=== PATIENT | male | born 1935 | race American Indian/Alaskan Native ===

== ENCOUNTER 2017-03-16 08:04 | Emergency (ER) | payer MEDICARE, OTHER ==
[2017-03-16 08:09] VITALS: BMI 31.4
--- NOTE | 2017-03-16 08:36 | C.PDOC ---
History Of Present Illness 81 Y/O MALE REFERRED BY DR. BOOTHE FOR RE-EVAL. PT STATUS POST UNKNOWN PROCEDURE AT [facility] [place] FOR HEMATURIA. PRIOR HX OF PROSTATE CANCER, NOW RESOLVED. KNOWN BPH. NOTES HAS NOT HAD HEMATURIA SINCE THE PROCEDURE. PT TOLD HIS OFFICE DOES NOT TAKE INSURANCE AND ADVISED TO COME TO ER FOR FOLLOW UP. PT DENIES ANY PAIN. NOTES HE IS URINATING W/O DIFFICULTY. Time Seen by Provider: 03/16/17 08:18 Chief Complaint (Nursing): Male Genitourinary History Per: Patient History/Exam Limitations: no limitations Onset/Duration Of Symptoms: Persistent Current Symptoms Are (Timing): Still Present Pain Scale Rating Of: 0 Associated Symptoms: denies: Fever, Chills, Back Pain, Urinary Symptoms Recent travel outside of the [place]: No Past Medical History Reviewed: Historical Data, Nursing Documentation, Vital Signs Vital Signs: Last Vital Signs Temp 97.9 F 03/16/17 10:25 Pulse 82 03/16/17 10:25 Resp 20 03/16/17 10:25 BP 157/83 H 03/16/17 10:25 Pulse Ox 99 03/16/17 10:25 - Medical History PMH: Benign Prostatic Hyperplasia, HTN Family History: States: Unknown Family Hx - Social History Hx Alcohol Use: No Hx Substance Use: No - Immunization History Hx Tetanus Toxoid Vaccination: No Hx Influenza Vaccination: No Hx Pneumococcal Vaccination: No Review Of Systems Except As Marked, All Systems Reviewed And Found Negative. Constitutional: Negative for: Fever, Chills Cardiovascular: Negative for: Chest Pain Respiratory: Negative for: Cough, Shortness of Breath Gastrointestinal: Negative for: Nausea, Vomiting, Abdominal Pain Genitourinary: Negative for: Dysuria, Hematuria Skin: Negative for: Rash Physical Exam - Physical Exam Appears: Non-toxic, No Acute Distress Skin: Warm, Dry Head: Atraumatic, Normacephalic Chest: Symmetrical Cardiovascular: Rhythm Regular Respiratory: Normal Breath Sounds, No Rales, No Rhonchi, No Wheezing Gastrointestinal/Abdominal: Soft, No Tenderness, No Distention Back: Normal Inspection Extremity: Capillary Refill (< 2 SEC.), Other (R AKA, LEFT FOOT STUMP) Extremity: Bilateral: Normal Color And Temperature Neurological/Psych: Oriented x3, Normal Speech, Normal Cognition ED Course And Treatment O2 Sat by Pulse Oximetry: 98 (RA) Pulse Ox Interpretation: Normal Progress - Re-Evaluation Re-evaluation Note: 03/16/17 08:35 D/W DR Evan BOOTHE AWARE OF ER FINDINGS WILL EVAL IN ER 03/16/17 09:50 PS TO URINARY HESITANCY, FREQ. BLADDER SONO BY DR BOOTHE = >200 CC RETENTION. CLEARED FOR DC BY DR BOOTHE. NO SMITH NEEDED. DC W MYBERTRIQ, PROSCAR AND EMPIRIC CIPRO. WILL FU OFFICE 03/16/17 10:33 ADVISED BY DIRECTOR OF RESIDENTIAL SERVICES SAMPLE UNABLE TO BE PROCESSED. PT NO LONGER IN ER, UNABLE TO SEND NEW URINE SAMPLE FOR TESTING. - Data Reviewed Data Reviewed: Old records - Continuity of Care Discussed pt. case with java developer consultant/specialty: Urology Disposition Counseled Patient/Family Regarding: Studies Performed, Diagnosis, Need For Followup, Rx Given - Disposition Referrals: Deisy Boothe MD [Staff Provider] - Disposition: HOME/ ROUTINE Disposition Time: 09:51 Condition: IMPROVED Prescriptions: Ciprofloxacin [Cipro] 1 tab PO BID #14 tab Finasteride [Proscar] 5 mg PO DAILY #90 tab Mirabegron [Myrbetriq] 50 mg PO DAILY #30 tab.er.24h Instructions: Urinary Retention in Men (ED) - Clinical Impression Clinical Impression: Urinary retention - Scribe Statement The provider has reviewed the documentation as recorded by the Isis MOLINA Provider Attestation: All medical record entries made by the Isis were at my direction and personally dictated by me. I have reviewed the chart and agree that the record accurately reflects my personal performance of the history, physical exam, medical decision making, and the department course for this patient. I have also personally directed, reviewed, and agree with the discharge instructions and disposition.
[2017-03-16 10:26] VITALS: BP 157/83; PULSE 82; RESP 20; TEMP 97.9
[2017-03-16 10:34] VITALS: O2SAT 98
--- NOTE | 2017-03-19 20:27 | CON ---
DATE: 03/16/2017 Urology consultation requested by Dr. Winn in the [facility]. Urology consultation held by Dr. Deisy Boothe. REASON FOR CONSULTATION: History of hematuria. The patient is an 81-year-old male with history of hematuria. The patient was admitted to [facility] last month with gross hematuria. The patient had urologic evaluation at that time. A CAT scan revealed bilateral mild hydronephrosis. The patient was found to have an enlarged prostate as well. The patient has significant history of other diseases including atherosclerotic cardiovascular disease. 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 The patient has history peripheral vascular disease with lower extremity amputation. There is a history of hypertension and diabetes. The patient has a smoking history as well. The patient has undergone coronary artery bypass graft. The patient previously underwent cystoscopy. He was found to have clots within the bladder, which required clot evacuation. The patient was found to have inflammation of the bladder and of the prostate. At cystoscopy, the patient did not have bladder tumor. He underwent retrograde pyelogram on the right side. The retrograde pyelogram was not able to be performed on the left side. MEDICATIONS: The patient's medications have included aspirin, Plavix, iron, metformin, metoprolol and tamsulosin. During his previous admission, the patient was found to have anemia, which was worse than his normal anemia. His creatinine was 1.5 at baseline and elizabeth to approximately 2 during hospitalization. The patient is comfortable now with urination. He does not have good urinary control. In fact, he reports that he has urinary incontinence. He can void using the urinal. However, he also voids into his incontinence pads/diaper. The patient has no recent hematuria. No recent fever or rigors. The patient lives at home. The patient was found to have enlarged prostate *------* cystoscopy as well. PHYSICAL EXAMINATION GENERAL: The patient is a well-developed, well-nourished elderly male. The patient is awake and alert. ABDOMEN: Soft, nontender. Abdomen is protuberant. Abdomen is mildly distended. GENITALIA: Without inflammation. IMPRESSION: An 81-year-old male with history of hematuria, history of benign prostatic hypertrophy, history of cystitis. The patient now has urinary frequency, urgency and urge incontinence. I performed a bladder scan. The residual was 220 mL. The etiology of the urinary symptoms may be due to prostate disease and/or bladder disease. Possible bladder outlet obstruction, possible overactive bladder. RECOMMENDATION AND PLAN: Continue tamsulosin. I will increase the tamsulosin to b.i.d. Consider adding Proscar. Check PSA, urinalysis and urine culture. Possibly add Myrbetriq. I discussed the findings with the patient, his daughter as well as the ER staff. Further therapy to follow according to the patient's clinical course. Deisy Boothe MD
== END 2017-03-16 10:26 | disposition home or self-care (01) ==
LOC: C.ER 08:04
DX: N40.1 Benign prostatic hyperplasia with lower urinary tract symptoms (principal); R35.0 Frequency of micturition; N39.41 Urge incontinence; R33.8 Other retention of urine

== ENCOUNTER 2017-03-31 10:42 | Inpatient (IN) | payer MEDICARE, OTHER ==
[2017-03-31 10:42] VITALS: BMI 31.4
--- NOTE | 2017-03-31 11:20 | C.PDOC ---
History Of Present Illness 81-YEAR-OLD MALE, PRESENTS TO THE EMERGENCY DEPARTMENT WITH COMPLAINTS OF RECUR HEMATURIA THIS MORNING. SEEN 03/[address] Evan BHATTI. CO DIFFICULTY URINATING. NO PAIN, INCR ABD DISTENTION. +NAUSEA NOW RESOLVED. NO FEVER EXAM NAD NONTOXIC ABD SOFT NT ND NO RG WNL Time Seen by Provider: 03/31/17 10:56 Chief Complaint (Nursing): Male Genitourinary History Per: Patient History/Exam Limitations: no limitations Onset/Duration Of Symptoms: Days Current Symptoms Are (Timing): Still Present Past Medical History Reviewed: Historical Data, Nursing Documentation, Vital Signs Vital Signs: Last Vital Signs Temp 97.9 F 03/31/17 11:00 Pulse 76 03/31/17 11:00 Resp 16 03/31/17 11:00 BP 137/67 03/31/17 11:00 Pulse Ox 98 03/31/17 14:22 - Medical History PMH: Benign Prostatic Hyperplasia, HTN Family History: States: No Known Family Hx - Social History Hx Alcohol Use: Yes Hx Substance Use: No - Immunization History Hx Tetanus Toxoid Vaccination: No Hx Influenza Vaccination: No Hx Pneumococcal Vaccination: No Review Of Systems Except As Marked, All Systems Reviewed And Found Negative. Constitutional: Negative for: Fever Cardiovascular: Negative for: Chest Pain, Palpitations Gastrointestinal: Positive for: Nausea, Other (abd distention). Negative for: Vomiting Genitourinary: Positive for: Hematuria, Other (difficulty urinating). Negative for: Dysuria Musculoskeletal: Negative for: Back Pain Neurological: Negative for: Weakness, Numbness, Headache, Dizziness Physical Exam - Physical Exam Appears: Non-toxic, No Acute Distress Skin: Warm, Dry, No Rash Eye(s): bilateral: Normal Inspection Nose: Normal Oral Mucosa: Moist Lips: Normal Appearing Neck: Normal ROM Cardiovascular: Rhythm Regular, No Murmur Respiratory: Normal Breath Sounds, No Accessory Muscle Use Gastrointestinal/Abdominal: Soft, No Tenderness, No Distention, No Guarding, No Rebound Male Genital: Normal Inspection Extremity: Normal ROM Neurological/Psych: Oriented x3 ED Course And Treatment - Laboratory Results Result Diagrams: 03/31/17 11:27 ECG: Interpreted By Me ECG Rhythm: 2nd Degree HB Mobitz I ECG Interpretation: Abnormal Interpretation Of ECG: TWI I, II, AVL, AVF V6; no prior O2 Sat by Pulse Oximetry: 98 Progress - Re-Evaluation Re-evaluation Note: 03/31/17 12:00 >500 CC URINARY RETENTION W BLADDER SCAN. +GROSS HEMATURIA S/P SMITH, 500CC OUTPUT. NO CLOTS. VSS PT APPEARS COMFORTABLE PENDING CALLBACK DR CASPER SINCE [id number] 03/31/17 12:23 D/W DR CASPER PT W HO HEMORRHAGIC CYSTITIS AND BPH. WILL CONSULT, ADVISES ADMISSION TO MEDICINE FOR ANEMIA UNK BASELINE CBC, LOW H/H ACUTE VS CHRONIC? D/W PMD WILL OBS 03/31/17 14:25 ABN EKG. NO PRIOR FOR COMPARISON. EXAM UNCH. PT DENIES CP. WILL CHANGE TO TELE - Data Reviewed Data Reviewed: Lab, Diagnostic imaging, Old records - Continuity of Care Discussed patient case with:: Patient, PMD Discussed pt. case with weight loss sales consultant/specialty: Urology Disposition Counseled Patient/Family Regarding: Studies Performed, Diagnosis - Disposition Disposition: HOSPITALIZED Disposition Time: 12:27 Condition: STABLE - POA Present On Arrival: None - Clinical Impression Clinical Impression: Urinary retention, Anemia, Hematuria - Scribe Statement The provider has reviewed the documentation as recorded by the Scribe (Kateryna Wills) All medical record entries made by the Scribe were at my direction and personally dictated by me. I have reviewed the chart and agree that the record accurately reflects my personal performance of the history, physical exam, medical decision making, and the department course for this patient. I have also personally directed, reviewed, and agree with the discharge instructions and disposition. Decision To Admit - Pt Status Changed To: Hospital Disposition Of: Observation - . Bed Request Type: Regular Admitting Physician: Jonatan Villalta Patient Diagnosis: Urinary retention, Anemia, Hematuria
[2017-03-31 11:36] LABS: HEMATOCRIT 26.8 % (35.0-51.0); MEAN CELL VOLUME 76.8 fL (80.0-94.0); MEAN CORPUSCULAR HEMOGLOBIN 24.8 pg (27.0-31.0); MEAN CORPUSCULAR HGB CONC 32.3 g/dL (33.0-37.0); MEAN PLATELET VOLUME 7.5 fL (7.2-11.7); RED CELL DISTRIBUTION WIDTH 18.1 % (11.5-14.5); WHITE BLOOD COUNT 8.7 K/uL (4.8-10.8)
[2017-03-31 12:05] LABS: RBC URINE 5614 /hpf (0-3); URINE BILIRUBIN NEGATIVE (NEGATIVE); URINE BLOOD 3+ (NEGATIVE); URINE COLOR Red (YELLOW); URINE GLUCOSE (UA) 1+ mg/dL (Normal); URINE KETONE NEGATIVE (NEGATIVE); URINE LEUKOCYTE ESTERASE NEG Leu/uL (Negative); URINE PROTEIN 2+ mg/dL (NEGATIVE); URINE UROBILINOGEN NORMAL mg/dL (0.2-1.0); WBC CLUMPS MANY /hpf
[2017-03-31 12:07] LABS: WBC URINE 0 /hpf (0-5)
[2017-03-31 14:40] LABS: POTASSIUM 5.1 mmol/L (3.6-5.2)
[2017-03-31 14:44] LABS: CALCIUM 9.1 mg/dl (8.6-10.4)
--- NOTE | 2017-03-31 15:14 | RAD ---
PROCEDURE: CHEST RADIOGRAPH, 1 VIEW HISTORY: MED CLEARANCE COMPARISON: 12/13/2012. FINDINGS: LUNGS: There is bibasilar atelectasis. No focal consolidation. There is mild pulmonary venous congestion. PLEURA: No pneumothorax or pleural fluid seen. CARDIOVASCULAR: The heart is normal in size. Status post CABG. OSSEOUS STRUCTURES: No significant abnormalities. VISUALIZED UPPER ABDOMEN: Normal. OTHER FINDINGS: None. IMPRESSION: Mild pulmonary venous congestion. Bibasilar atelectasis.
[2017-03-31 20:07] LABS: HEMATOCRIT 22.3 % (35.0-51.0); MEAN CELL VOLUME 76.6 fL (80.0-94.0); MEAN CORPUSCULAR HEMOGLOBIN 25.3 pg (27.0-31.0); MEAN PLATELET VOLUME 7.3 fL (7.2-11.7); RED CELL DISTRIBUTION WIDTH 17.8 % (11.5-14.5); WHITE BLOOD COUNT 8.3 K/uL (4.8-10.8)
--- NOTE | 2017-03-31 22:49 | CP.PCM.HP ---
History of Present Illness - History of Present Illness History of Present Illness: CC: Hematuria, right sided groin pain x 1 day HPI: 81 year old AA female well known to me with h/o PVD, DM, CKD, HTN, CAD details, PAD post BKA, isma toe amputation, smoker, Hx of prostatic malignancy, treated at , now with retention, recent CT with bilateral hydronephosis, now with folley, 500 ml, no CP, abnormal EKG, check Echo few weeks ago pt was in [facility] [place] ,c/o hematuria and obs uropathy he underwent cystoscopy and found no abnormailaties ( stones, tumors) and was discharged home on medical managment Present on Admission - Present on Admission Any Indicators Present on Admission: Yes Review of Systems - Review of Systems Systems not reviewed;Unavailable: Acuity of Condition - Constitutional Constitutional: Fatigue, Lethargy - EENT Eyes: absent: As Per HPI, Blind Spots, Blurred Vision, Change in Vision, Decreased Night Vision, Diplopia, Discharge, Dry Eye, Exophthalmos, Floaters, Irritation, Itchy Eyes, Loss of Peripheral Vision, Pain, Photophobia, Requires Corrective Lenses, Sees Flashes, Spots in Vision, Tunnel Vision, Other Visual Disturbances, Loss of Vision, Other Ears: absent: As Per HPI, Decreased Hearing, Ear Discharge, Ear Pain, Tinnitus, Abnormal Hearing, Disequilibrium, Dizziness, Other Nose/Mouth/Throat: absent: As Per HPI, Epistaxis, Nasal Congestion, Nasal Discharge, Nasal Obstruction, Nasal Trauma, Nose Pain, Post Nasal Drip, Sinus Pain, Sinus Pressure, Bleeding Gums, Change in Voice, Dental Pain, Dry Mouth, Dysphagia, Halitosis, Hoarsness, Lip Swelling, Mouth Lesions, Mouth Pain, Odynophagia, Sore Throat, Throat Swelling, Tongue Swelling, Facial Pain, Neck Pain, Neck Mass, Other - Respiratory Respiratory: absent: As Per HPI, Cough, Dyspnea, Hemoptysis, Dyspnea on Exertion , Wheezing, Snoring, Stridor, Pain on Inspiration, Chest Congestion, Excessive Mucous Production, Change in Mucous Color, Pain with Coughing, Other - Gastrointestinal Gastrointestinal: Abdominal Pain - Genitourinary Genitourinary: Hematuria, Urinary Hesitance Past Patient History - Past Medical History & Family History Past Medical History?: Yes - Past Social History Smoking Status: Light Smoker < 10 Cigarettes Daily - CARDIAC Hx Cardiac Disorders: Yes Hx Hypertension: Yes - PULMONARY Hx Respiratory Disorders: No - NEUROLOGICAL Hx Neurological Disorder: No - HEENT Hx HEENT Problems: No - RENAL Hx Chronic Kidney Disease: No - ENDOCRINE/METABOLIC Hx Endocrine Disorders: Yes Hx Diabetes Mellitus Type 1: Yes - HEMATOLOGICAL/ONCOLOGICAL Hx Blood Disorders: No - INTEGUMENTARY Hx Dermatological Problems: No - MUSCULOSKELETAL/RHEUMATOLOGICAL Hx Musculoskeletal Disorders: No Hx Falls: No - GASTROINTESTINAL Hx Gastrointestinal Disorders: No - GENITOURINARY/GYNECOLOGICAL Hx Genitourinary Disorders: Yes Hx Hematuria: Yes Hx Prostate Cancer: Yes - PSYCHIATRIC Hx Psychophysiologic Disorder: No Hx Substance Use: No - SURGICAL HISTORY Hx Surgeries: Yes Hx Amputation: Yes (R BKA, L foot) Other/Comment: Bladder surgery. Liver biopsy - ANESTHESIA Hx Anesthesia: Yes Hx Anesthesia Reactions: No Hx Malignant Hyperthermia: No Has any member of the family had a problem w/ anesthesia?: No Meds Allergies/Adverse Reactions: Allergies Allergy/AdvReac Type Severity Reaction Status Date / Time No Known Allergies Allergy Verified 03/16/17 08:08 Physical Exam - Constitutional Appears: No Acute Distress Additional comments: pt is in mild pain lower part of abdomen tense and distented - Head Exam Head Exam: ATRAUMATIC, NORMAL INSPECTION, NORMOCEPHALIC - Eye Exam Eye Exam: EOMI, Normal appearance - ENT Exam ENT Exam: Mucous Membranes Moist - Respiratory Exam Respiratory Exam: Rhonchi, NORMAL BREATHING PATTERN - Cardiovascular Exam Cardiovascular Exam: REGULAR RHYTHM, +S1, +S2 - GI/Abdominal Exam GI & Abdominal Exam: Normal Bowel Sounds Additional comments: temse lower abdomen - Rectal Exam Additional comments: enlarged prostrate non teneder foleys in place with bright red blood stool neg for gauic - Psychiatric Exam Psychiatric exam: Normal Affect, Normal Mood Results - Vital Signs Recent Vital Signs: Last Vital Signs Temp 98.2 F 03/31/17 17:46 Pulse 75 03/31/17 17:46 Resp 20 03/31/17 17:46 BP 132/57 L 03/31/17 17:46 Pulse Ox 95 03/31/17 17:46 - Labs Result Diagrams: 04/03/17 05:59 04/03/17 05:59 Labs: Laboratory Results - last 24 hr 03/31/17 03/31/17 03/31/17 14:25 16:47 19:58 WBC 8.3 RBC 2.91 L Hgb 7.4 L Hct 22.3 L MCV 76.6 L MCH 25.3 L MCHC 33.0 RDW 17.8 H Plt Count 205 MPV 7.3 Sodium 137 Potassium 5.1 Chloride 99 Carbon Dioxide 23 Anion Gap 20 BUN 23 H Creatinine 1.8 H Est GFR ( Amer) 44 Est GFR (Non-Af Amer) 36 POC Glucose (mg/dL) 154 H Random Glucose 111 H Calcium 9.1 Blood Type Blood Type Confirm Antibody Screen 03/31/17 03/31/17 21:00 21:38 WBC RBC Hgb Hct MCV MCH MCHC RDW Plt Count MPV Sodium Potassium Chloride Carbon Dioxide Anion Gap BUN Creatinine Est GFR ( Amer) Est GFR (Non-Af Amer) POC Glucose (mg/dL) 165 H Random Glucose Calcium Blood Type A POSITIVE Blood Type Confirm A POSITIVE Antibody Screen Negative Assessment & Plan (1) Anemia Status: Acute (2) Hematuria Assessment and Plan: CBC in morning monitor H and H transfuse if necessary urology follow up Status: Acute (3) Urinary retention Status: Acute (4) Atherosclerosis of coronary artery Status: Chronic (5) Diabetes 1.5, managed as type 2 Status: Chronic (6) Hypertension Status: Chronic
[2017-04-01 08:16] LABS: HEMATOCRIT 26.4 % (35.0-51.0); MEAN CELL VOLUME 77.7 fL (80.0-94.0); MEAN CORPUSCULAR HGB CONC 33.4 g/dL (33.0-37.0); MEAN PLATELET VOLUME 7.3 fL (7.2-11.7); RED CELL DISTRIBUTION WIDTH 18.8 % (11.5-14.5); WHITE BLOOD COUNT 7.7 K/uL (4.8-10.8)
[2017-04-01 08:34] LABS: POTASSIUM 5.1 mmol/L (3.6-5.2)
[2017-04-01 08:38] LABS: CALCIUM 8.9 mg/dl (8.6-10.4)
--- NOTE | 2017-04-01 15:47 | CP.PCM.CON ---
History of Present Illness - History of Present Illness History of Present Illness: Covering for Dr Collins 81 year old with DM, HTN, ? CAD ? details, PAD post BKA, smoker, Hx of prostatic malignancy, treated at , now with retention, recent CT with bilateral hydronephosis, now with folley, 500 ml, no CP, abnormal EKG, check Echo Review of Systems - Constitutional Constitutional: Anorexia, Weakness - EENT Eyes: absent: Discharge Ears: absent: Ear Discharge Nose/Mouth/Throat: absent: Epistaxis - Cardiovascular Cardiovascular: absent: Acrocyanosis, Chest Pain, Diaphoresis, Palpitations, Syncope - Respiratory Respiratory: absent: Cough, Dyspnea, Hemoptysis - Gastrointestinal Gastrointestinal: absent: Abdominal Pain, Diarrhea, Hematemesis, Vomiting - Genitourinary Genitourinary: Change in Urinary Stream, Difficulty Urinating, Hematuria Past Patient History - Past Medical History & Family History Past Medical History?: Yes - Past Social History Smoking Status: Light Smoker < 10 Cigarettes Daily - CARDIAC Hx Cardiac Disorders: Yes Hx Hypertension: Yes - PULMONARY Hx Respiratory Disorders: No - NEUROLOGICAL Hx Neurological Disorder: No - HEENT Hx HEENT Problems: No - RENAL Hx Chronic Kidney Disease: No - ENDOCRINE/METABOLIC Hx Endocrine Disorders: Yes Hx Diabetes Mellitus Type 1: Yes - HEMATOLOGICAL/ONCOLOGICAL Hx Blood Disorders: No - INTEGUMENTARY Hx Dermatological Problems: No - MUSCULOSKELETAL/RHEUMATOLOGICAL Hx Musculoskeletal Disorders: No Hx Falls: No - GASTROINTESTINAL Hx Gastrointestinal Disorders: No - GENITOURINARY/GYNECOLOGICAL Hx Genitourinary Disorders: Yes Hx Hematuria: Yes Hx Prostate Cancer: Yes - PSYCHIATRIC Hx Psychophysiologic Disorder: No Hx Substance Use: No - SURGICAL HISTORY Hx Surgeries: Yes Hx Amputation: Yes (R BKA, L foot) Other/Comment: Bladder surgery. Liver biopsy - ANESTHESIA Hx Anesthesia: Yes Hx Anesthesia Reactions: No Hx Malignant Hyperthermia: No Has any member of the family had a problem w/ anesthesia?: No Meds Allergies/Adverse Reactions: Allergies Allergy/AdvReac Type Severity Reaction Status Date / Time No Known Allergies Allergy Verified 03/16/17 08:08 - Medications Medications: Current Medications Ferrous Sulfate (Feosol) 325 mg PO DAILY [facility] Last Admin: 04/01/17 10:51 Dose: 325 mg Losartan Potassium (Cozaar) 100 mg PO DAILY [facility] Last Admin: 04/01/17 10:51 Dose: 100 mg Metformin HCl (Glucophage) 500 mg PO DAILY [facility] Last Admin: 04/01/17 10:51 Dose: 500 mg Metoprolol Tartrate (Lopressor) 50 mg PO BID [facility] Last Admin: 04/01/17 10:50 Dose: 50 mg Pneumococcal Polyvalent Vaccine (Pneumovax 23 Vaccine) 0.5 ml IM .ONCE ONE Stop: 04/02/17 10:01 Rosuvastatin Calcium (Crestor) 5 mg PO [facility] Last Admin: 03/31/17 22:24 Dose: 5 mg Tamsulosin HCl (Flomax) 0.4 mg PO BID [facility] Last Admin: 04/01/17 10:50 Dose: 0.4 mg Physical Exam - Constitutional Appears: Non-toxic - Head Exam Head Exam: ATRAUMATIC - Eye Exam Eye Exam: EOMI - ENT Exam ENT Exam: Mucous Membranes Moist - Neck Exam Neck exam: Negative for: Lymphadenopathy, Tenderness, Thyromegaly - Respiratory Exam Respiratory Exam: Clear to Auscultation Bilateral. absent: Wheezes - Cardiovascular Exam Cardiovascular Exam: REGULAR RHYTHM, Systolic Murmur - GI/Abdominal Exam GI & Abdominal Exam: Normal Bowel Sounds. absent: Organomegaly - Rectal Exam Rectal Exam: Deferred - Extremities Exam Extremities exam: Positive for: normal capillary refill. Negative for: calf tenderness - Neurological Exam Neurological exam: Alert, Oriented x3 - Psychiatric Exam Psychiatric exam: Normal Affect, Normal Mood - Skin Skin Exam: Dry Results - Vital Signs Recent Vital Signs: Last Vital Signs Temp 98.3 F 04/01/17 07:20 Pulse 79 04/01/17 07:20 Resp 18 04/01/17 07:20 BP 138/68 04/01/17 07:20 Pulse Ox 96 04/01/17 07:20 - Labs Result Diagrams: 04/01/17 08:04 04/01/17 08:04 Assessment & Plan (1) Urinary retention Status: Acute (2) Diabetes 1.5, managed as type 2 Status: Chronic (3) Hypertension Status: Chronic (4) Atherosclerosis of coronary artery Status: Chronic (5) Abnormal EKG Status: Acute
--- NOTE | 2017-04-01 22:32 | CP.PCM.PN ---
Subjective - Date & Time of Evaluation Date of Evaluation: 04/01/17 Time of Evaluation: 15:35 - Subjective Subjective: Pt seen and examined, Azevedo catheter in place, no retention, follow-up with . No chest pain follow-up with echocardiogram Objective - Vital Signs/Intake and Output Vital Signs (last 24 hours): Temp Pulse Resp BP Pulse Ox 98.2 F 55 L 20 157/69 H 96 04/01/17 17:16 04/01/17 17:16 04/01/17 17:16 04/01/17 17:16 04/01/17 17:16 - Medications Medications: Current Medications Ferrous Sulfate (Feosol) 325 mg PO DAILY [facility] Last Admin: 04/01/17 10:51 Dose: 325 mg Losartan Potassium (Cozaar) 100 mg PO DAILY [facility] Last Admin: 04/01/17 10:51 Dose: 100 mg Metformin HCl (Glucophage) 500 mg PO DAILY [facility] Last Admin: 04/01/17 10:51 Dose: 500 mg Metoprolol Tartrate (Lopressor) 50 mg PO BID [facility] Last Admin: 04/01/17 18:07 Dose: 50 mg Pneumococcal Polyvalent Vaccine (Pneumovax 23 Vaccine) 0.5 ml IM .ONCE ONE Stop: 04/02/17 10:01 Rosuvastatin Calcium (Crestor) 5 mg PO HS [facility] Last Admin: 04/01/17 21:31 Dose: 5 mg Tamsulosin HCl (Flomax) 0.4 mg PO BID [facility] Last Admin: 04/01/17 18:07 Dose: 0.4 mg - Constitutional Appears: No Acute Distress - Head Exam Head Exam: ATRAUMATIC, NORMAL INSPECTION, NORMOCEPHALIC - Eye Exam Eye Exam: EOMI, Normal appearance, PERRL Pupil Exam: NORMAL ACCOMODATION, PERRL - Respiratory Exam Respiratory Exam: Clear to Ausculation Bilateral, NORMAL BREATHING PATTERN - Cardiovascular Exam Cardiovascular Exam: REGULAR RHYTHM, +S1, +S2. absent: Murmur - GI/Abdominal Exam GI & Abdominal Exam: Soft, Normal Bowel Sounds. absent: Tenderness Assessment and Plan (1) Anemia Status: Acute (2) Hematuria Status: Acute (3) Urinary retention Status: Acute (4) Atherosclerosis of coronary artery Status: Chronic (5) Diabetes 1.5, managed as type 2 Status: Chronic (6) Hypertension Status: Chronic
[2017-04-02] MEDS ORDERED: Propofol 10 mg/ml Inj (20 ML) ONE (09:08)
[2017-04-02] MEDS ORDERED: Lactated Ringer's 500 ML IV ONE (09:16)
[2017-04-02] MEDS: cefTRIAXone IV 1 gm in Dextros 50 ML IVPB ONE ×2 (09:16→09:17)
[2017-04-02] MEDS ORDERED: HYDROmorphone 0.5 mg/0.5 ml ISec IVP PRN (09:55)
[2017-04-02] MEDS ORDERED: Lactated Ringer's 1,000 ML IV ONE (09:57)
[2017-04-02] MEDS ORDERED: Pneumococcal 23-Valent Vaccine IM ONE (10:00)
[2017-04-02] MEDS ORDERED: Influenza Virus Vaccine 45 mcg/0.5 ml Syr IM ONE (10:00)
--- NOTE | 2017-04-02 10:22 | CP.PCM.CON ---
History of Present Illness - History of Present Illness History of Present Illness: Full report to be dictated. Thank you.YS Past Patient History - Past Medical History & Family History Past Medical History?: Yes - Past Social History Smoking Status: Light Smoker < 10 Cigarettes Daily - CARDIAC Hx Cardiac Disorders: Yes Hx Hypertension: Yes - PULMONARY Hx Respiratory Disorders: No - NEUROLOGICAL Hx Neurological Disorder: No - HEENT Hx HEENT Problems: No - RENAL Hx Chronic Kidney Disease: No - ENDOCRINE/METABOLIC Hx Endocrine Disorders: Yes Hx Diabetes Mellitus Type 1: Yes - HEMATOLOGICAL/ONCOLOGICAL Hx Blood Disorders: No - INTEGUMENTARY Hx Dermatological Problems: No - MUSCULOSKELETAL/RHEUMATOLOGICAL Hx Musculoskeletal Disorders: No Hx Falls: No - GASTROINTESTINAL Hx Gastrointestinal Disorders: No - GENITOURINARY/GYNECOLOGICAL Hx Genitourinary Disorders: Yes Hx Hematuria: Yes Hx Prostate Cancer: Yes - PSYCHIATRIC Hx Psychophysiologic Disorder: No Hx Substance Use: No - SURGICAL HISTORY Hx Surgeries: Yes Hx Amputation: Yes (R BKA, L foot) Other/Comment: Bladder surgery. Liver biopsy - ANESTHESIA Hx Anesthesia: Yes Hx Anesthesia Reactions: No Hx Malignant Hyperthermia: No Has any member of the family had a problem w/ anesthesia?: No Meds Allergies/Adverse Reactions: Allergies Allergy/AdvReac Type Severity Reaction Status Date / Time No Known Allergies Allergy Verified 03/16/17 08:08 - Medications Medications: Current Medications Ferrous Sulfate (Feosol) 325 mg PO DAILY [facility] Last Admin: 04/01/17 10:51 Dose: 325 mg Hydromorphone HCl (Dilaudid) 0.5 mg IVP Q15M PRN PRN Reason: Pain, severe (8-10) Stop: 04/02/17 11:56 Losartan Potassium (Cozaar) 100 mg PO DAILY [facility] Last Admin: 04/01/17 10:51 Dose: 100 mg Metformin HCl (Glucophage) 500 mg PO DAILY [facility] Last Admin: 04/01/17 10:51 Dose: 500 mg Metoprolol Tartrate (Lopressor) 50 mg PO BID [facility] Last Admin: 04/02/17 07:51 Dose: 50 mg Rosuvastatin Calcium (Crestor) 5 mg PO HS [facility] Last Admin: 04/01/17 21:31 Dose: 5 mg Tamsulosin HCl (Flomax) 0.4 mg PO BID [facility] Last Admin: 04/01/17 18:07 Dose: 0.4 mg Results - Vital Signs Recent Vital Signs: Last Vital Signs Temp 98.0 F 04/02/17 07:50 Pulse 69 04/02/17 07:50 Resp 20 04/02/17 07:50 BP 154/70 H 04/02/17 07:50 Pulse Ox 98 04/02/17 07:50 - Labs Result Diagrams: 04/01/17 08:04 04/01/17 08:04 Labs: Laboratory Results - last 24 hr 04/01/17 04/01/17 04/02/17 16:50 21:23 06:20 POC Glucose (mg/dL) 115 H 138 H 114 H Assessment & Plan - Assessment and Plan (Free Text) Assessment: Imp: Hematuria BPH\ Retention CAD Plan: P; for cysto and rx - Date & Time Date: 04/02/17 Time: 09:00
--- NOTE | 2017-04-02 10:36 | RAD ---
PROCEDURE: Intraoperative Fluoroscopy. HISTORY: BLADDER TUMOR FINDINGS: Fluoroscopic assistance was provided for retrograde urography.. Total time of fluoroscopy was 11.5 seconds. Multiple fluoroscopic spot films are submitted. Films are on file for review. IMPRESSION: Fluoroscopy provided
--- NOTE | 2017-04-02 12:29 | CP.PCM.PN ---
Subjective - Date & Time of Evaluation Date of Evaluation: 03/26/17 Time of Evaluation: 12:00 - Subjective Subjective: Azevedo catheter in place, no retention, follow-up with . No chest pain follow- up with echocardiogram Objective - Vital Signs/Intake and Output Vital Signs (last 24 hours): Temp Pulse Resp BP Pulse Ox 97.7 F 57 L 18 170/71 H 98 04/02/17 11:46 04/02/17 11:46 04/02/17 11:46 04/02/17 11:46 04/02/17 11:46 Intake and Output: 04/02/17 04/02/17 06:59 18:59 Intake Total 350 Output Total 550 Balance -200 - Medications Medications: Current Medications Ferrous Sulfate (Feosol) 325 mg PO DAILY [facility] Last Admin: 04/01/17 10:51 Dose: 325 mg Losartan Potassium (Cozaar) 100 mg PO DAILY [facility] Last Admin: 04/01/17 10:51 Dose: 100 mg Metformin HCl (Glucophage) 500 mg PO DAILY [facility] Last Admin: 04/01/17 10:51 Dose: 500 mg Metoprolol Tartrate (Lopressor) 50 mg PO BID [facility] Last Admin: 04/02/17 07:51 Dose: 50 mg Rosuvastatin Calcium (Crestor) 5 mg PO HS [facility] Last Admin: 04/01/17 21:31 Dose: 5 mg Tamsulosin HCl (Flomax) 0.4 mg PO BID [facility] Last Admin: 04/01/17 18:07 Dose: 0.4 mg - Constitutional Appears: Non-toxic - Head Exam Head Exam: ATRAUMATIC - Eye Exam Eye Exam: EOMI - ENT Exam ENT Exam: Mucous Membranes Moist - Neck Exam Neck Exam: absent: Lymphadenopathy, Thyromegaly - Respiratory Exam Respiratory Exam: Clear to Ausculation Bilateral. absent: Rales - Cardiovascular Exam Cardiovascular Exam: REGULAR RHYTHM, Murmur - GI/Abdominal Exam GI & Abdominal Exam: Normal Bowel Sounds. absent: Organomegaly - Rectal Exam Rectal Exam: Deferred - Extremities Exam Extremities Exam: Normal Capillary Refill. absent: Calf Tenderness - Neurological Exam Neurological Exam: Alert, Oriented x3 - Psychiatric Exam Psychiatric exam: Anxious - Skin Skin Exam: Dry Assessment and Plan (1) Urinary retention Status: Acute (2) Diabetes 1.5, managed as type 2 Status: Chronic (3) Hypertension Status: Chronic (4) Atherosclerosis of coronary artery Status: Chronic (5) Abnormal EKG Status: Acute
--- NOTE | 2017-04-02 23:39 | CP.PCM.PN ---
Subjective - Date & Time of Evaluation Date of Evaluation: 04/02/17 Time of Evaluation: 19:00 - Subjective Subjective: Azevedo catheter in place, no retention, follow-up with . No chest pain follow- up with echocardiogram Objective - Vital Signs/Intake and Output Vital Signs (last 24 hours): Temp Pulse Resp BP Pulse Ox 98.1 F 65 18 156/68 H 98 04/02/17 15:15 04/02/17 15:15 04/02/17 15:15 04/02/17 15:15 04/02/17 15:15 Intake and Output: 04/02/17 04/03/17 18:59 06:59 Intake Total 380 720 Output Total 650 1200 Balance -270 -480 - Medications Medications: Current Medications Ferrous Sulfate (Feosol) 325 mg PO DAILY [facility] Last Admin: 04/02/17 12:49 Dose: 325 mg Losartan Potassium (Cozaar) 100 mg PO DAILY [facility] Last Admin: 04/02/17 12:49 Dose: 100 mg Metformin HCl (Glucophage) 500 mg PO DAILY [facility] Last Admin: 04/02/17 12:50 Dose: 500 mg Metoprolol Tartrate (Lopressor) 50 mg PO BID [facility] Last Admin: 04/02/17 18:16 Dose: 50 mg Rosuvastatin Calcium (Crestor) 5 mg PO HS [facility] Last Admin: 04/02/17 21:24 Dose: 5 mg Tamsulosin HCl (Flomax) 0.4 mg PO BID [facility] Last Admin: 04/02/17 18:16 Dose: 0.4 mg
[2017-04-03 06:05] LABS: HEMATOCRIT 23.5 % (35.0-51.0); MEAN CELL VOLUME 77.9 fL (80.0-94.0); MEAN CORPUSCULAR HEMOGLOBIN 25.9 pg (27.0-31.0); MEAN CORPUSCULAR HGB CONC 33.2 g/dL (33.0-37.0); MEAN PLATELET VOLUME 7.4 fL (7.2-11.7); RED CELL DISTRIBUTION WIDTH 18.5 % (11.5-14.5); WHITE BLOOD COUNT 8.4 K/uL (4.8-10.8)
[2017-04-03 06:21] LABS: POTASSIUM 4.9 mmol/L (3.6-5.2)
[2017-04-03 06:24] LABS: CALCIUM 8.1 mg/dl (8.6-10.4)
--- NOTE | 2017-04-03 16:34 | PCM.URO ---
Urology Progress Note - Objective Lab Studies: Reviewed Lab Results Last 24 Hours: Laboratory Results - last 24 hr 04/02/17 04/02/17 04/03/17 16:55 21:25 05:59 WBC 8.4 RBC 3.02 L Hgb 7.8 L Hct 23.5 L MCV 77.9 L MCH 25.9 L MCHC 33.2 RDW 18.5 H Plt Count 212 MPV 7.4 Sodium Potassium Chloride Carbon Dioxide Anion Gap BUN Creatinine Est GFR ( Amer) Est GFR (Non-Af Amer) POC Glucose (mg/dL) 120 H 115 H Random Glucose Calcium 04/03/17 04/03/17 04/03/17 05:59 06:40 11:34 WBC RBC Hgb Hct MCV MCH MCHC RDW Plt Count MPV Sodium 135 Potassium 4.9 Chloride 98 Carbon Dioxide 23 Anion Gap 19 BUN 21 H Creatinine 1.6 H Est GFR ( Amer) 50 Est GFR (Non-Af Amer) 41 POC Glucose (mg/dL) 129 H 184 H Random Glucose 95 Calcium 8.1 L 04/03/17 16:12 WBC RBC Hgb Hct MCV MCH MCHC RDW Plt Count MPV Sodium Potassium Chloride Carbon Dioxide Anion Gap BUN Creatinine Est GFR ( Amer) Est GFR (Non-Af Amer) POC Glucose (mg/dL) 131 H Random Glucose Calcium Intake & Output: Intake & Output 04/02/17 04/03/17 04/03/17 18:59 06:59 18:59 Intake Total 380 5720 1250 Output Total 650 6800 750 Balance -270 -1080 500 Intake: Intake, IV Amount 300 400 Right Hand 300 400 Oral 80 320 Other 5000 1250 Output: Urine 650 6800 750 3-way Urethral 750 Urethral (Azevedo) 550 1500 Other: # Bowel Movements 1 0 Vital Signs: Vital Signs - 24 hr 04/02/17 04/03/17 04/03/17 23:00 07:00 09:29 Temperature 99.3 F 98.6 F Pulse Rate 76 63 50 L Respiratory 20 20 18 Rate Blood Pressure 138/1 L 133/56 L 124/57 L O2 Sat by Pulse 96 95 Oximetry
--- NOTE | 2017-04-04 00:51 | PN ---
SUBJECTIVE: The patient underwent TURP today. He denies any chest pain or shortness of breath. He refuses to get telemetry on. PHYSICAL EXAMINATION: VITAL SIGNS: Blood pressure 156/71, heart rate 70, temperature 98.7, respiration 20. HEENT: [place] conjunctivae. CHEST: Diminished breath sounds over both bases. HEART: S1, S2 regular. 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 LABORATORY DATA: Today's BUN and creatinine are 21 and 1.6. The rest of SMA-7 is within normal limits. Today's hemoglobin and hematocrit 7.8 and 23.5, white count and platelet count are within normal limits. ASSESSMENT: 1. History of coronary artery disease that is not confirmed with the patient or his daughter, who is not aware of the patient seeing zipper measurer; however, presentation of EKG was consistent with inferolateral ischemia. 2. Status post transurethral resection of prostate. 3. Chronic renal insufficiency. 4. Significant anemia. 5. 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 RECOMMENDATIONS: Continue current Cozaar 100 mg once a day, Crestor 5 mg once a day, metformin 500 mg once a day, Lopressor 12.5 mg twice a day. Repeat hemoglobin and hematocrit in the a.m. and obtain 12 lead EKG. I will also request an echocardiographic study as no echocardiographic study has been found in the database. Dannie Collins MD
--- NOTE | 2017-04-04 08:23 | CP.PCM.PN ---
Subjective - Date & Time of Evaluation Date of Evaluation: 04/03/17 Time of Evaluation: 21:00 - Subjective Subjective: Pt seen and examined, is for urology eval and cystoscopy Objective - Vital Signs/Intake and Output Vital Signs (last 24 hours): Temp Pulse Resp BP Pulse Ox 98.9 F 97 H 18 153/64 H 95 04/04/17 07:00 04/04/17 07:00 04/04/17 07:00 04/04/17 07:00 04/04/17 07:00 Intake and Output: 04/04/17 04/04/17 06:59 18:59 Intake Total 480 Output Total 1350 Balance -870 - Medications Medications: Current Medications Docusate Sodium (Colace) 100 mg PO TID [facility] Last Admin: 04/03/17 17:34 Dose: 100 mg Ferrous Sulfate (Feosol) 325 mg PO DAILY [facility] Last Admin: 04/03/17 09:28 Dose: 325 mg Losartan Potassium (Cozaar) 100 mg PO DAILY [facility] Last Admin: 04/03/17 09:29 Dose: 100 mg Metformin HCl (Glucophage) 500 mg PO DAILY [facility] Last Admin: 04/03/17 09:28 Dose: 500 mg Metoprolol Tartrate (Lopressor) 12.5 mg PO BID [facility] Last Admin: 04/03/17 17:34 Dose: 12.5 mg Rosuvastatin Calcium (Crestor) 5 mg PO HS [facility] Last Admin: 04/03/17 21:53 Dose: 5 mg Tamsulosin HCl (Flomax) 0.4 mg PO BID [facility] Last Admin: 04/03/17 17:34 Dose: 0.4 mg - Labs Labs: 04/03/17 05:59 04/03/17 05:59
--- NOTE | 2017-04-04 17:13 | PCM.SURG1 ---
Surgeon's Initial Post Op Note - Surgeon's Notes Surgeon: hannah lozano Track Repairer Helper: none Pre-Operative Diagnosis: hematuria. retention. bph Operative Findings: same Post-Operative Diagnosis: same Operation Performed: cysto. evauation of clots. bladder bx and fulg. tur-bn Specimen/Specimens Removed: clots, urine, bladder bx, bn Estimated Blood Loss: EBL {In ML}: 30 Blood Products Given: N/A Post-Op Condition: Good Date of Surgery/Procedure: 04/02/17 Time of Surgery/Procedure: 12:00
--- NOTE | 2017-04-04 17:20 | PCM.URO ---
Urology Progress Note - General General: No Complaints, Tolerating Diet - Subjective Abdominal Pain: No Flank Pain: No Nausea: No Vomiting: No Hematuria: Yes Good Stream: No (catheter in place) Chest Pain: No Fever & Chills: No - Objective Lab Studies: Reviewed Lab Results Last 24 Hours: Laboratory Results - last 24 hr 04/03/17 04/04/17 04/04/17 20:57 06:21 12:04 POC Glucose (mg/dL) 128 H 102 146 H Intake & Output: Intake & Output 04/03/17 04/04/17 04/04/17 18:59 06:59 18:59 Intake Total 1250 480 Output Total 750 1350 750 Balance 500 -870 -750 Intake: Oral 480 Other 1250 Output: Urine 750 1350 750 3-way Urethral 750 1000 Urethral (Azevedo) 350 750 Other: # Bowel Movements 0 Vital Signs: Vital Signs - 24 hr 04/03/17 04/04/17 04/04/17 23:00 07:00 08:45 Temperature 98.5 F 98.9 F 98.1 F Pulse Rate 76 97 H 71 Respiratory 20 18 18 Rate Blood Pressure 153/68 H 153/64 H 117/75 O2 Sat by Pulse 96 95 96 Oximetry 04/04/17 16:53 Temperature 99.2 F Pulse Rate 68 Respiratory 20 Rate Blood Pressure 136/60 O2 Sat by Pulse 95 Oximetry Imaging Studies: Reviewed - Physical Exam Abdominal Exam: Soft, Non-Tender, Non-Distended Bowel Sounds: Normal Back: No CVA Tenderness Genitalia: Without Inflammation Urine Color: [place] Extremities: Normal: Bilateral - Male Phallus: Normal Scrotum: Normal Testes: Normal: Bilateral - Plan Additional Information: Imp: stable post cysto. bph. hematuria. previous voiding sx - poor stream, nocturia. urinary retention. anemia. rec/plan: catheter in place. poss turp t/f - Date & Time of Note Date: 04/04/17 Time: 13:25
--- NOTE | 2017-04-04 18:54 | PN ---
In my consultation yesterday stated the patient underwent TURP; however, correctly, the patient underwent cystoscopy with bladder biopsy and TURP is being scheduled for Sunday. I did review the EKG that was done last night which revealed sinus arrhythmia, first-degree AV block and resolution of the previously noted lateral ischemic ST-T wave changes. The patient denies any chest pain. PHYSICAL EXAM: VITAL SIGNS: Blood pressure 136/60, heart rate 68, temperature 99.2, respirations 20. HEENT: Pale conjunctiva. CHEST: Clear. HEART: S1, S2 regular. EXTREMITIES: Right below-knee amputation and left ankle-level amputation. ASSESSMENT: 1. Peripheral vascular disease status post bilateral leg amputation. 2. Questionable history of coronary artery disease. 3. Anemia. 4. Uncontrolled diabetes mellitus. 5. Hypertension. RECOMMENDATIONS: Continue Cozaar 20 mg once a day, Crestor 5 mg once a day, Feosol 325 mg once a day, Lopressor 12.5 mg twice a day. Obtain followup CBC in a.m. The patient is awaiting echocardiograph study, which I did order yesterday. Dannie Collins MD
--- NOTE | 2017-04-04 22:51 | CP.PCM.PN ---
Subjective - Date & Time of Evaluation Date of Evaluation: 04/04/17 Time of Evaluation: 20:10 - Subjective Subjective: OR SUNDAY, NO HEMATURIA, NO NAUSEA, NO VOMINTING, NO CHEST PAIN, PENDING CLEARANCE Objective - Vital Signs/Intake and Output Vital Signs (last 24 hours): Temp Pulse Resp BP Pulse Ox 99.2 F 68 20 136/60 95 04/04/17 16:53 04/04/17 16:53 04/04/17 16:53 04/04/17 16:53 04/04/17 16:53 Intake and Output: 04/04/17 04/05/17 18:59 06:59 Output Total 750 Balance -750 - Medications Medications: Current Medications Docusate Sodium (Colace) 100 mg PO TID [facility] Last Admin: 04/04/17 17:36 Dose: 100 mg Ferrous Sulfate (Feosol) 325 mg PO DAILY [facility] Last Admin: 04/04/17 09:48 Dose: 325 mg Losartan Potassium (Cozaar) 100 mg PO DAILY [facility] Last Admin: 04/04/17 09:48 Dose: 100 mg Metformin HCl (Glucophage) 500 mg PO DAILY [facility] Last Admin: 04/04/17 09:48 Dose: 500 mg Metoprolol Tartrate (Lopressor) 12.5 mg PO BID [facility] Last Admin: 04/04/17 17:36 Dose: 12.5 mg Rosuvastatin Calcium (Crestor) 5 mg PO HS [facility] Last Admin: 04/04/17 21:38 Dose: 5 mg Sennosides (Senokot Tab) 8.6 mg PO DAILY [facility] Last Admin: 04/04/17 13:29 Dose: 8.6 mg Tamsulosin HCl (Flomax) 0.4 mg PO BID [facility] Last Admin: 04/04/17 17:36 Dose: 0.4 mg - Labs Labs: 04/03/17 05:59 04/03/17 05:59 - Constitutional Appears: Non-toxic, No Acute Distress, Chronically Ill - Head Exam Head Exam: ATRAUMATIC, NORMAL INSPECTION, NORMOCEPHALIC - Eye Exam Eye Exam: EOMI, Normal appearance, PERRL Pupil Exam: NORMAL ACCOMODATION - ENT Exam ENT Exam: Mucous Membranes Moist, Normal Exam, Normal Oropharynx, TM's Normal Bilaterally - Neck Exam Neck Exam: Normal Inspection - Respiratory Exam Respiratory Exam: NORMAL BREATHING PATTERN - Cardiovascular Exam Cardiovascular Exam: REGULAR RHYTHM, +S1, +S2, Murmur - GI/Abdominal Exam GI & Abdominal Exam: Soft, Normal Bowel Sounds - Rectal Exam Rectal Exam: NORMAL INSPECTION - Extremities Exam Extremities Exam: Pedal Edema (B/L FOOT AMPUTATIONS CLEAN WOUNDS) - Neurological Exam Neurological Exam: Abnormal Gait, Alert, Awake, CN II-XII Intact, Oriented x3 Neuro motor strength exam: Left Upper Extremity: 5, Right Upper Extremity: 5, Left Lower Extremity: 5, Right Lower Extremity: 5 - Psychiatric Exam Psychiatric exam: Normal Mood - Skin Skin Exam: Dry Assessment and Plan (1) Hematuria Assessment & Plan: FOR TURP SUNDAY Status: Resolved (2) Atherosclerosis of coronary artery Status: Chronic (3) Diabetes 1.5, managed as type 2 Status: Chronic (4) Hypertension Status: Chronic
[2017-04-05 07:41] LABS: BASO % 0.3 % (0.0-2.0); EOS % 0.7 % (0.0-4.0); HEMATOCRIT 23.9 % (35.0-51.0); LYMPH # 1.3 K/uL (1.0-4.3); LYMPH % 19.5 % (20.0-40.0); MEAN CELL VOLUME 77.3 fL (80.0-94.0); MEAN CORPUSCULAR HEMOGLOBIN 25.8 pg (27.0-31.0); MEAN CORPUSCULAR HGB CONC 33.3 g/dL (33.0-37.0); MEAN PLATELET VOLUME 7.5 fL (7.2-11.7); MONO # 0.8 K/uL (0.0-0.8); MONO % 12.5 % (0.0-10.0); RED CELL DISTRIBUTION WIDTH 18.3 % (11.5-14.5); WHITE BLOOD COUNT 6.5 K/uL (4.8-10.8)
[2017-04-05 07:47] LABS: CALCIUM 8.6 mg/dl (8.6-10.4); POTASSIUM 4.7 mmol/L (3.6-5.2)
--- NOTE | 2017-04-05 09:51 | PCM.URO ---
Urology Progress Note - Subjective Hematuria: Yes (pt for turp 04/06 if cleared/ pt for transfusion today) - Objective Lab Results Last 24 Hours: Laboratory Results - last 24 hr 04/04/17 04/04/17 04/04/17 12:04 16:43 21:39 WBC RBC Hgb Hct MCV MCH MCHC RDW Plt Count MPV Neut % (Auto) Lymph % (Auto) [place] % (Auto) Eos % (Auto) Baso % (Auto) Neut # Lymph # [place] # Eos # Baso # Sodium Potassium Chloride Carbon Dioxide Anion Gap BUN Creatinine Est GFR ( Amer) Est GFR (Non-Af Amer) POC Glucose (mg/dL) 146 H 120 H 101 Random Glucose Calcium 04/05/17 04/05/17 04/05/17 06:23 07:17 07:17 WBC 6.5 RBC 3.09 L Hgb 8.0 L Hct 23.9 L MCV 77.3 L MCH 25.8 L MCHC 33.3 RDW 18.3 H Plt Count 197 MPV 7.5 Neut % (Auto) 67.0 Lymph % (Auto) 19.5 L [place] % (Auto) 12.5 H Eos % (Auto) 0.7 Baso % (Auto) 0.3 Neut # 4.3 Lymph # 1.3 Bates # 0.8 Eos # 0.0 Baso # 0.0 Sodium 134 Potassium 4.7 Chloride 98 Carbon Dioxide 26 Anion Gap 16 BUN 22 H Creatinine 1.8 H Est GFR ( Amer) 44 Est GFR (Non-Af Amer) 36 POC Glucose (mg/dL) 100 Random Glucose 93 Calcium 8.6 Intake & Output: Intake & Output 04/04/17 04/05/17 04/05/17 18:59 06:59 18:59 Intake Total 440 Output Total 750 770 Balance -750 -330 Intake: Oral 440 Output: Urine 750 770 3-way Urethral 770 Urethral (Azevedo) 750 Other: # Bowel Movements 0 Vital Signs: Vital Signs - 24 hr 04/04/17 04/05/17 04/05/17 16:53 00:09 07:45 Temperature 99.2 F 99.1 F 98.7 F Pulse Rate 68 57 L 77 Respiratory 20 20 18 Rate Blood Pressure 136/60 139/78 147/61 O2 Sat by Pulse 95 98 96 Oximetry
--- NOTE | 2017-04-05 17:23 | CP.PCM.PCO ---
Physician Communication Note - Physician Communication Note Physician Communication Note: PT MEDICALLY CLEARED FOR OR TOMORROW PER DR. NOEL
--- NOTE | 2017-04-05 19:44 | PN ---
SUBJECTIVE: The patient denies any chest pain or shortness of breath at this time. He complains of poor appetite. PHYSICAL EXAM: VITAL SIGNS: Blood pressure 147/61, heart rate 77, temperature 98.7, respirations 18. HEENT: Pale conjunctivae. CHEST: Clear. HEART: S1, S2 regular. ABDOMEN: Soft. 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 LABORATORY DATA: Hemoglobin and hematocrit 8.0 and 23.9. White count and platelet count are within normal limits. Today's BUN and creatinine are 22 and 1.8. The rest of SMA-7 is within normal limit. Preliminary echo report revealed ejection fraction of 61%, mild pulmonary hypertension, and a mean gradient of 14 mmHg across aortic valve. ASSESSMENT: 1. Peripheral vascular disease with right below-knee amputation and left foot amputation. 2. Hematuria and history of lymphocytic carcinoma. 3. Hypertension. 4. Chronic renal insufficiency. 5. Uncontrolled diabetes mellitus. RECOMMENDATIONS: Continue current Cozaar 100 mg daily, Crestor 5 mg at bedtime, metformin 500 mg daily, Lopressor 2.5 mg twice a day. I am going to view the echocardiographic study prior to clearing the patient for TURP. Dannie Collins MD
--- NOTE | 2017-04-05 22:13 | CP.PCM.PN ---
Subjective - Date & Time of Evaluation Date of Evaluation: 04/05/17 Time of Evaluation: 20:13 - Subjective Subjective: for or in am MEDICALL STABLE FOR OR, NO FEVER, NO SOB, AND CLEARED MEDICALLY FOR OR AVERAGE RISK, NO FEVER Objective - Vital Signs/Intake and Output Vital Signs (last 24 hours): Temp Pulse Resp BP Pulse Ox 98.6 F 76 20 127/67 98 04/05/17 20:57 04/05/17 20:57 04/05/17 20:57 04/05/17 20:57 04/05/17 15:36 Intake and Output: 04/05/17 04/06/17 18:59 06:59 Intake Total 0 325 Output Total 850 Balance -850 325 - Medications Medications: Current Medications Docusate Sodium (Colace) 100 mg PO TID [facility] Last Admin: 04/05/17 19:08 Dose: 100 mg Ferrous Sulfate (Feosol) 325 mg PO DAILY [facility] Last Admin: 04/05/17 09:42 Dose: 325 mg Losartan Potassium (Cozaar) 100 mg PO DAILY [facility] Last Admin: 04/05/17 09:42 Dose: 100 mg Metformin HCl (Glucophage) 500 mg PO DAILY [facility] Last Admin: 04/05/17 09:42 Dose: 500 mg Metoprolol Tartrate (Lopressor) 12.5 mg PO BID [facility] Last Admin: 04/05/17 19:08 Dose: 12.5 mg Rosuvastatin Calcium (Crestor) 5 mg PO HS [facility] Last Admin: 04/04/17 21:38 Dose: 5 mg Sennosides (Senokot Tab) 8.6 mg PO DAILY [facility] Last Admin: 04/05/17 09:42 Dose: 8.6 mg Tamsulosin HCl (Flomax) 0.4 mg PO BID [facility] Last Admin: 04/05/17 19:08 Dose: 0.4 mg - Labs Labs: 04/05/17 07:17 04/05/17 07:17 - Constitutional Appears: Non-toxic, No Acute Distress, Chronically Ill - Head Exam Head Exam: ATRAUMATIC, NORMAL INSPECTION, NORMOCEPHALIC - Eye Exam Eye Exam: EOMI, Normal appearance, PERRL Pupil Exam: NORMAL ACCOMODATION - Neck Exam Neck Exam: Normal Inspection - Respiratory Exam Respiratory Exam: Clear to Ausculation Bilateral, NORMAL BREATHING PATTERN - Cardiovascular Exam Cardiovascular Exam: Gallop, REGULAR RHYTHM, +S1, +S2, Murmur - GI/Abdominal Exam GI & Abdominal Exam: Soft, Normal Bowel Sounds - Rectal Exam Rectal Exam: NORMAL INSPECTION - Extremities Exam Extremities Exam: Pedal Edema (OLD AMPUTATIONS WITH HREALED OLD SURGERIES) Assessment and Plan (1) Hematuria Assessment & Plan: FOR TURP IN AM Status: Resolved (2) Atherosclerosis of coronary artery Status: Chronic (3) Diabetes 1.5, managed as type 2 Status: Chronic (4) Hypertension Status: Chronic
[2017-04-05 23:07] LABS: HEMATOCRIT 27.3 % (35.0-51.0); MEAN CELL VOLUME 78.6 fL (80.0-94.0); MEAN CORPUSCULAR HEMOGLOBIN 26.1 pg (27.0-31.0); MEAN CORPUSCULAR HGB CONC 33.3 g/dL (33.0-37.0); MEAN PLATELET VOLUME 7.2 fL (7.2-11.7); RED CELL DISTRIBUTION WIDTH 18.3 % (11.5-14.5); WHITE BLOOD COUNT 6.8 K/uL (4.8-10.8)
[2017-04-05 23:14] LABS: INR 1.2
[2017-04-06 07:43] LABS: BASO % 0.2 % (0.0-2.0); EOS % 0.8 % (0.0-4.0); HEMATOCRIT 27.4 % (35.0-51.0); LYMPH # 1.4 K/uL (1.0-4.3); LYMPH % 24.2 % (20.0-40.0); MEAN CELL VOLUME 78.2 fL (80.0-94.0); MEAN CORPUSCULAR HEMOGLOBIN 26.3 pg (27.0-31.0); MEAN CORPUSCULAR HGB CONC 33.6 g/dL (33.0-37.0); MEAN PLATELET VOLUME 7.7 fL (7.2-11.7); MONO # 0.6 K/uL (0.0-0.8); RED CELL DISTRIBUTION WIDTH 18.5 % (11.5-14.5); WHITE BLOOD COUNT 5.8 K/uL (4.8-10.8)
[2017-04-06 08:32] LABS: POTASSIUM 4.7 mmol/L (3.6-5.2)
[2017-04-06 08:35] LABS: CALCIUM 8.5 mg/dl (8.6-10.4)
--- NOTE | 2017-04-06 10:09 | CARD ---
APPROVED REPORT EKG Measurement Heart [id number] <Conclusion> Undetermined rhythm Left ventricular hypertrophy with repolarization abnormality Abnormal ECG
[2017-04-06] MEDS ORDERED: Propofol 10 mg/ml Inj (20 ML) ONE (12:02)
[2017-04-06] MEDS ORDERED: cefTRIAXone IV 1 gm in Dextros 50 ML IVPB ONE (12:12)
[2017-04-06] MEDS ORDERED: Sodium Chloride 0.9% 500 ML IV ONE (12:15)
[2017-04-06] MEDS ORDERED: Phenylephrine 10 mg/ml Inj ONE (12:46)
--- NOTE | 2017-04-06 13:25 | PCM.SURG1 ---
Surgeon's Initial Post Op Note - Surgeon's Notes Surgeon: hannah lozano Housekeeping Manager: none Type of Anesthesia: General LMA Pre-Operative Diagnosis: bph Operative Findings: same Post-Operative Diagnosis: same Operation Performed: turp Specimen/Specimens Removed: prostate Estimated Blood Loss: EBL {In ML}: 20 Blood Products Given: N/A Post-Op Condition: Good Date of Surgery/Procedure: 04/06/17 Time of Surgery/Procedure: 13:25
[2017-04-06] MEDS ORDERED: Sodium Chloride 0.9% 1,000 ML IV ONE (13:32)
[2017-04-06] MEDS ORDERED: Morphine 4 MG/ML VIAL IVP PRN (14:03)
--- NOTE | 2017-04-06 14:09 | CARD ---
APPROVED REPORT EXAM: Two-dimensional and M-mode echocardiogram with Doppler and color Doppler. INDICATION Abnormal EKG/Arrhythmia RISK FACTORS Hypertension Diabetes 2D DIMENSIONS LVOT Diameter1.3 (1.8-2.4cm) M-Mode DIMENSIONS RVDd1.52 (2.1-3.2cm)Left Atrium (MM)4.12 (2.5-4.0cm) IVSd1.07 (0.7-1.1cm)Aortic Root3.17 (2.2-3.7cm) LVDd5.11 (4.0-5.6cm)Aortic Cusp Exc.1.48 (1.5-2.0cm) PWd1.24 (0.7-1.1cm)FS (%) 33 % LVDs3.42 (2.0-3.8cm)LVEF (%)61 (>50%) Aortic Valve AoV Peak Cljoatxu183.5cm/sAoV VTI55.5cmAO Peak GR.14mmHg LVOT Peak Spuczwvi798.6cm/sLVOT VTI24.40cmAO Mean GR.14mmHg ALONSO (VMAX)0.35si0TSZ (VTI)0.57cm2 Mitral Valve MV E Pqxbugws215.5cm/sMV E Peak Gr.18mmHgMV A Zgnltofo673.0cm/s MV E Mean Gr.6mmHgMV TPO964kwY/A ratio1.4 MVA (PHT)0.96cm2 TDI E/Lateral E'0.0E/Medial E'0.0 Tricuspid Valve TR Peak Bjhnvjol416vg/sTR Peak Gr.01rrPdRSEF34sbYt <Conclusion> INCOMPLETE AND INACCURATE MEAUSERMENTS NORMAL LV EF ? AORTIC VALVE PROSTHESIS CALCIFIED MITRAL ANUULUS EXTENDING TO MITRAL VALVE IF CLINICALLY INDICATED REPEAT ECHO
--- NOTE | 2017-04-06 16:52 | PN ---
SUBJECTIVE: I did see the patient earlier before he went to TURP. The patient had no chest pain, comfortable and no shortness of breath. PHYSICAL EXAMINATION: VITAL SIGNS: Blood pressure 109/58, heart rate 70, temperature 97, respiration 14. HEENT: [place] conjunctivae. CHEST: Clear. HEART: S1, S2 regular. There was no significant systolic murmur to suggest significant aortic stenosis. ABDOMEN: Soft. 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 LABORATORY DATA: Hemoglobin and hematocrit 9.2 and 27.4. White count and platelet count are within normal limits. Today's BUN and creatinine are 25 and 1.8. The rest of SMA-7 is within normal limits. Official echo report is incomplete in an accurate measurements and normal ejection fraction, questionable valve prosthesis. ASSESSMENT: 1. Questionable aortic valve replacement done, possible bypass surgery with history of underlying coronary artery disease. 2. 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 3. Chronic renal insufficiency. 4. Anemia. RECOMMENDATIONS: The patient can undergo TURP from the cardiac point of view with moderate risk. Case was discussed with the AIRCRAFT INSTRUMENT MECHANIC. Postoperatively, the patient will be resumed on his cardiac medications including Lopressor; however, antiplatelet therapy will have to be cleared with the urologist. Dannie Collins MD
--- NOTE | 2017-04-06 19:13 | CARD ---
APPROVED REPORT EKG Measurement Heart [id number] CT [id number] <Conclusion> Sinus rhythm with 1st degree AV block with blocked premature atrial complexes Otherwise normal ECG
--- NOTE | 2017-04-06 23:01 | CP.PCM.PN ---
Subjective - Date & Time of Evaluation Date of Evaluation: 04/06/17 Time of Evaluation: 20:17 - Subjective Subjective: S/P TURP, NO CHEST PAIN, NO SOB Objective - Vital Signs/Intake and Output Vital Signs (last 24 hours): Temp Pulse Resp BP Pulse Ox 97.8 F 78 20 167/90 H 96 04/06/17 16:43 04/06/17 16:43 04/06/17 16:43 04/06/17 16:43 04/06/17 16:43 Intake and Output: 04/06/17 04/07/17 18:59 06:59 Intake Total 50 Output Total 100 Balance -50 - Medications Medications: Current Medications Docusate Sodium (Colace) 100 mg PO TID [facility] Last Admin: 04/06/17 18:19 Dose: 100 mg Ferrous Sulfate (Feosol) 325 mg PO DAILY [facility] Last Admin: 04/06/17 10:42 Dose: Not Given Losartan Potassium (Cozaar) 100 mg PO DAILY [facility] Last Admin: 04/06/17 10:42 Dose: Not Given Metformin HCl (Glucophage) 500 mg PO DAILY [facility] Last Admin: 04/06/17 10:42 Dose: Not Given Metoprolol Tartrate (Lopressor) 12.5 mg PO BID [facility] Last Admin: 04/06/17 18:19 Dose: 12.5 mg Rosuvastatin Calcium (Crestor) 5 mg PO HS [facility] Last Admin: 04/06/17 21:49 Dose: 5 mg Sennosides (Senokot Tab) 8.6 mg PO DAILY [facility] Last Admin: 04/06/17 10:42 Dose: Not Given Tamsulosin HCl (Flomax) 0.4 mg PO BID [facility] Last Admin: 04/06/17 18:19 Dose: 0.4 mg - Labs Labs: 04/06/17 07:20 04/06/17 07:20 PT 13.0 SECONDS (9.7-12.2) H 04/05/17 23:04 INR 1.2 04/05/17 23:04 - Constitutional Appears: Non-toxic, No Acute Distress - Head Exam Head Exam: ATRAUMATIC, NORMAL INSPECTION, NORMOCEPHALIC - Eye Exam Eye Exam: EOMI, Normal appearance, PERRL Pupil Exam: NORMAL ACCOMODATION - ENT Exam ENT Exam: Mucous Membranes Moist, Normal Exam, Normal Oropharynx, TM's Normal Bilaterally - Neck Exam Neck Exam: Normal Inspection - Respiratory Exam Respiratory Exam: Clear to Ausculation Bilateral, NORMAL BREATHING PATTERN - Cardiovascular Exam Cardiovascular Exam: REGULAR RHYTHM, +S1, +S2 - GI/Abdominal Exam GI & Abdominal Exam: Soft, Normal Bowel Sounds - Rectal Exam Rectal Exam: NORMAL INSPECTION - Neurological Exam Neurological Exam: Abnormal Gait, Alert, Awake, CN II-XII Intact, Oriented x3 Assessment and Plan (1) Hematuria Assessment & Plan: S/P TURP Status: Resolved (2) Atherosclerosis of coronary artery Status: Chronic (3) Diabetes 1.5, managed as type 2 Status: Chronic (4) Hypertension Status: Chronic
[2017-04-07 06:38] LABS: HEMATOCRIT 28.1 % (35.0-51.0); MEAN CELL VOLUME 78.5 fL (80.0-94.0); MEAN CORPUSCULAR HEMOGLOBIN 25.9 pg (27.0-31.0); MEAN PLATELET VOLUME 7.8 fL (7.2-11.7); RED CELL DISTRIBUTION WIDTH 18.5 % (11.5-14.5); WHITE BLOOD COUNT 6.8 K/uL (4.8-10.8)
[2017-04-07 06:43] LABS: POTASSIUM 4.9 mmol/L (3.6-5.2)
[2017-04-07 06:46] LABS: CALCIUM 8.3 mg/dl (8.6-10.4)
--- NOTE | 2017-04-07 20:26 | PN ---
DATE: 04/07/2017 SUBJECTIVE: The patient underwent transurethral prostatic resection yesterday. He denies chest pain at this time. He refuses to keep belt splicer on. PHYSICAL EXAMINATION VITAL SIGNS: Blood pressure 167/75, heart rate 82, temperature 99.8, respiration 20. HEENT: [place] conjunctivae. CHEST: Clear. HEART: Sounds are regular. 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 LABORATORY DATA: Hemoglobin and hematocrit 9.3 and 28.1, white count and platelet count are within normal limits. Today's BUN and creatinine are 24 and 1.7 respectively. Glucose 111. The rest of SMA-7 is within normal limits. ASSESSMENT: 1. Status post transurethral resection of the prostate. 2. Coronary artery disease with history of coronary artery bypass surgery and possible aortic valve replacement. 3. 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 4. Hypertension. 5. Anemia. RECOMMENDATIONS: Continue aspirin 81 mg once a day, Cozaar mg once a day, Crestor at 5 mg once a day, Feosol at one tablet once a day, Plavix will be resumed tomorrow at 75 mg once a day. Resume Lopressor 12.5 mg twice a day. Obtain 12 lead EKG. Dannie Collins MD
--- NOTE | 2017-04-08 06:48 | OP ---
PROCEDURE DATE: 04/06/2017 PREOPERATIVE DIAGNOSES: Urinary retention, hematuria and enlarged prostate. POSTOPERATIVE DIAGNOSES: Urinary retention, hematuria and enlarged prostate. PROCEDURE: Transurethral resection of prostate. SURGEON: Deisy Boothe MD DESCRIPTION OF PROCEDURE: The patient received general anesthesia. The patient received perioperative antibiotics. The patient was placed in lithotomy position. The genitalia prepped and draped sterilely. A 26-Romansh continuous flow resectoscope sheath was introduced under direct vision. Urethra, prostate, and bladder were inspected. FINDINGS: There was no stricture in the anterior urethra. There was evidence of trilobar prostatic hypertrophy. There was moderate bladder trabeculation. Cystitis was noted. There was no bladder tumor. There was no bladder stone. The ureteral orifices were identified and spared throughout the procedure. Resection of the prostate was begun at the bladder neck on the floor. The rest of the anterior roof tissue was resected. Subsequently, the lateral lobes were each resected. Finally, the floor and apical prostatic tissues were resected with the surgeon's index finger with the in the rectum. Hemostasis was achieved after each section of resection. The prostatic specimen was removed with microvasive evacuator. The resectoscope was reinserted. There were no residual prostatic chips. Hemostasis was complete. Resectoscope and sheath were removed. A Azevedo catheter was inserted. Bladder was drained, it was clear. There was minimal bleeding throughout the procedure. The patient tolerated the procedure without complication. Deisy Boothe MD
--- NOTE | 2017-04-08 18:43 | PN ---
DATE: 04/08/2017 SUBJECTIVE: The patient is extremely noncompliant today. He refuses to have blood work and refused process pumper. He denies chest pain or shortness of breath. examined him today. PHYSICAL EXAMINATION: VITAL SIGNS: Blood pressure 150/84, heart rate 84, temperature 98.4, respirations 20. LABORATORY DATA: EKG done last night reveals Mobitz I second-degree AV block. Today's blood sugars are 104 and 152. ASSESSMENT: 1. Status post transurethral prostatectomy. 2. Mobitz I second-degree AV block. 3. Coronary artery disease and questionable history of aortic valve replacement. 4. Uncontrolled diabetes mellitus. 5. Hypertension. CONDITIONS: Continue aspirin 81 mg once a day, Cozaar 100 mg daily, and Plavix 75 mg once a day. Discontinue Lopressor and obtain 12 lead EKG once the patient allows. Continue Crestor 5 mg once a day, and Feosol 325 mg daily. Dannie Collins MD
--- NOTE | 2017-04-08 21:29 | CP.PCM.PN ---
Subjective - Date & Time of Evaluation Date of Evaluation: 04/07/17 Time of Evaluation: 20:19 - Subjective Subjective: S/P TURP, NO COMPLICATIONS NO SOB, NO CHEST PAIN Objective - Vital Signs/Intake and Output Vital Signs (last 24 hours): Temp Pulse Resp BP Pulse Ox 99.4 F 82 18 151/76 H 96 04/08/17 15:14 04/08/17 18:09 04/08/17 15:14 04/08/17 18:09 04/08/17 15:14 Intake and Output: 04/08/17 04/09/17 18:59 06:59 Intake Total 300 Output Total 375 Balance -75 - Medications Medications: Current Medications Amlodipine Besylate (Norvasc) 5 mg PO DAILY [facility] Aspirin (Aspirin Chewable) 81 mg PO DAILY [facility] Last Admin: 04/08/17 10:45 Dose: 81 mg Clopidogrel Bisulfate (Plavix) 75 mg PO DAILY [facility] Last Admin: 04/08/17 10:45 Dose: 75 mg Docusate Sodium (Colace) 100 mg PO TID [facility] Last Admin: 04/08/17 17:20 Dose: 100 mg Ferrous Sulfate (Feosol) 325 mg PO DAILY [facility] Last Admin: 04/08/17 10:45 Dose: 325 mg Losartan Potassium (Cozaar) 100 mg PO DAILY [facility] Last Admin: 04/08/17 10:45 Dose: 100 mg Metformin HCl (Glucophage) 500 mg PO DAILY [facility] Last Admin: 04/08/17 10:45 Dose: 500 mg Rosuvastatin Calcium (Crestor) 5 mg PO HS [facility] Last Admin: 04/08/17 21:15 Dose: 5 mg Sennosides (Senokot Tab) 8.6 mg PO DAILY [facility] Last Admin: 04/08/17 10:45 Dose: 8.6 mg Tamsulosin HCl (Flomax) 0.4 mg PO BID [facility] Last Admin: 04/08/17 17:20 Dose: 0.4 mg - Labs Labs: 04/07/17 06:24 04/07/17 06:24 PT 13.0 SECONDS (9.7-12.2) H 04/05/17 23:04 INR 1.2 04/05/17 23:04 - Constitutional Appears: Non-toxic, No Acute Distress - Head Exam Head Exam: ATRAUMATIC, NORMAL INSPECTION, NORMOCEPHALIC - Eye Exam Pupil Exam: NORMAL ACCOMODATION - ENT Exam ENT Exam: Mucous Membranes Moist - Respiratory Exam Respiratory Exam: Clear to Ausculation Bilateral, NORMAL BREATHING PATTERN - Cardiovascular Exam Cardiovascular Exam: +S1, +S2, Murmur - GI/Abdominal Exam GI & Abdominal Exam: Normal Bowel Sounds - Rectal Exam Rectal Exam: NORMAL INSPECTION - Exam Exam: NORMAL INSPECTION - Extremities Exam Extremities Exam: Pedal Edema - Back Exam Back Exam: NORMAL INSPECTION Assessment and Plan (1) Hematuria Assessment & Plan: S/P TURP, AND HAS FOLEYS Status: Resolved (2) Atherosclerosis of coronary artery Status: Chronic (3) Diabetes 1.5, managed as type 2 Status: Chronic (4) Hypertension Status: Chronic
--- NOTE | 2017-04-08 22:26 | CP.PCM.PN ---
Subjective - Date & Time of Evaluation Date of Evaluation: 04/08/17 Time of Evaluation: 20:20 - Subjective Subjective: FEELS BETTER, NO SOB Objective - Vital Signs/Intake and Output Vital Signs (last 24 hours): Temp Pulse Resp BP Pulse Ox 99.4 F 82 18 151/76 H 96 04/08/17 15:14 04/08/17 18:09 04/08/17 15:14 04/08/17 18:09 04/08/17 15:14 Intake and Output: 04/08/17 04/09/17 18:59 06:59 Intake Total 300 320 Output Total 375 540 Balance -75 -220 - Medications Medications: Current Medications Amlodipine Besylate (Norvasc) 5 mg PO DAILY [facility] Aspirin (Aspirin Chewable) 81 mg PO DAILY [facility] Last Admin: 04/08/17 10:45 Dose: 81 mg Clopidogrel Bisulfate (Plavix) 75 mg PO DAILY [facility] Last Admin: 04/08/17 10:45 Dose: 75 mg Docusate Sodium (Colace) 100 mg PO TID [facility] Last Admin: 04/08/17 17:20 Dose: 100 mg Ferrous Sulfate (Feosol) 325 mg PO DAILY [facility] Last Admin: 04/08/17 10:45 Dose: 325 mg Losartan Potassium (Cozaar) 100 mg PO DAILY [facility] Last Admin: 04/08/17 10:45 Dose: 100 mg Metformin HCl (Glucophage) 500 mg PO DAILY [facility] Last Admin: 04/08/17 10:45 Dose: 500 mg Rosuvastatin Calcium (Crestor) 5 mg PO HS [facility] Last Admin: 04/08/17 21:15 Dose: 5 mg Sennosides (Senokot Tab) 8.6 mg PO DAILY [facility] Last Admin: 04/08/17 10:45 Dose: 8.6 mg Tamsulosin HCl (Flomax) 0.4 mg PO BID [facility] Last Admin: 04/08/17 17:20 Dose: 0.4 mg - Labs Labs: 04/07/17 06:24 04/07/17 06:24 PT 13.0 SECONDS (9.7-12.2) H 04/05/17 23:04 INR 1.2 04/05/17 23:04 - Constitutional Appears: Non-toxic, No Acute Distress, Chronically Ill - Head Exam Head Exam: ATRAUMATIC, NORMAL INSPECTION, NORMOCEPHALIC - Eye Exam Eye Exam: EOMI, Normal appearance Pupil Exam: NORMAL ACCOMODATION, PERRL - ENT Exam ENT Exam: Mucous Membranes Moist, Normal Exam - Respiratory Exam Respiratory Exam: Clear to Ausculation Bilateral, NORMAL BREATHING PATTERN - Cardiovascular Exam Cardiovascular Exam: +S1, +S2, Murmur - GI/Abdominal Exam GI & Abdominal Exam: Soft, Normal Bowel Sounds - Rectal Exam Rectal Exam: NORMAL INSPECTION - Exam Exam: NORMAL INSPECTION - Extremities Exam Extremities Exam: Full ROM - Back Exam Back Exam: NORMAL INSPECTION Assessment and Plan (1) Hematuria Assessment & Plan: S/P TURP Status: Resolved (2) Atherosclerosis of coronary artery Status: Chronic (3) Diabetes 1.5, managed as type 2 Status: Chronic (4) Hypertension Status: Chronic
[2017-04-09 08:15] LABS: BASO % 0.2 % (0.0-2.0); EOS % 0.5 % (0.0-4.0); HEMATOCRIT 27.6 % (35.0-51.0); LYMPH # 1.7 K/uL (1.0-4.3); LYMPH % 23.6 % (20.0-40.0); MEAN CELL VOLUME 77.8 fL (80.0-94.0); MEAN CORPUSCULAR HGB CONC 33.5 g/dL (33.0-37.0); MEAN PLATELET VOLUME 7.5 fL (7.2-11.7); MONO # 0.8 K/uL (0.0-0.8); MONO % 11.3 % (0.0-10.0); RED CELL DISTRIBUTION WIDTH 18.6 % (11.5-14.5); WHITE BLOOD COUNT 7.1 K/uL (4.8-10.8)
--- NOTE | 2017-04-09 12:19 | PCM.URO ---
Urology Progress Note - General General: No Complaints, Tolerating Diet - Subjective Abdominal Pain: No Flank Pain: No Nausea: No Vomiting: No Hematuria: No Dsypnea: No Chest Pain: No Fever & Chills: No - Objective Lab Studies: Reviewed Lab Results Last 24 Hours: Laboratory Results - last 24 hr 04/08/17 04/08/17 04/09/17 16:55 20:56 06:36 WBC RBC Hgb Hct MCV MCH MCHC RDW Plt Count MPV Neut % (Auto) Lymph % (Auto) Bee % (Auto) Eos % (Auto) Baso % (Auto) Neut # Lymph # Bee # Eos # Baso # POC Glucose (mg/dL) 109 153 H 109 04/09/17 04/09/17 07:45 11:23 WBC 7.1 RBC 3.55 L Hgb 9.3 L Hct 27.6 L MCV 77.8 L MCH 26.0 L MCHC 33.5 RDW 18.6 H Plt Count 196 MPV 7.5 Neut % (Auto) 64.4 Lymph % (Auto) 23.6 Bee % (Auto) 11.3 H Eos % (Auto) 0.5 Baso % (Auto) 0.2 Neut # 4.5 Lymph # 1.7 Bee # 0.8 Eos # 0.0 Baso # 0.0 POC Glucose (mg/dL) 154 H Intake & Output: Intake & Output 04/08/17 04/09/17 04/09/17 18:59 06:59 18:59 Intake Total 300 320 Output Total 375 1090 Balance -75 -770 Intake: Oral 300 320 Output: Urine 375 10[address]-way Urethral 1090 Urethral (Azevedo) 375 Other: # Bowel Movements 2 1 Vital Signs: Vital Signs - 24 hr 04/08/17 04/08/17 04/08/17 15:14 18:09 23:00 Temperature 99.4 F 99 F Pulse Rate 58 L 82 86 Respiratory 18 20 Rate Blood Pressure 161/66 H 151/76 H 143/63 O2 Sat by Pulse 96 96 Oximetry 04/09/17 07:00 Temperature 98.6 F Pulse Rate 91 H Respiratory 18 Rate Blood Pressure 146/70 O2 Sat by Pulse 95 Oximetry - Physical Exam Abdominal Exam: Soft, Non-Tender, Non-Distended Bowel Sounds: Normal Back: No CVA Tenderness Genitalia: Without Inflammation Urinary Catheter Draining Well: Yes Urine Color: Clear, Yellow - Male Phallus: Normal - Plan Discontinue Urinary Catheter: Yes Ambulation - Out of Bed: Yes Intake & Output: Yes Additional Information: Imp: progressing well, post TURP. rec: d/c foly. Discussed with pt and w [facility] staff - Date & Time of Note Date: 04/09/17 Time: 12:19
--- NOTE | 2017-04-09 13:10 | PN ---
SUBJECTIVE: The patient denies any chest pain or shortness of breath. He refuses to keep telemetry on and to his heart and lungs. PHYSICAL EXAMINATION VITAL SIGNS: Blood pressure 146/70, heart rate 91, temperature 98.6, respiration 18. LABORATORY DATA: Hemoglobin and hematocrit 9.3 and 27.6, white count and platelet count are within normal limits. Today's glucose are 109 and 154. ASSESSMENT: 1. Status post transurethral resection of the prostate. 2. Coronary artery disease status post coronary artery bypass surgery and possible aortic valve replacement. 3. Mobitz I second-degree AV block. 4. Diabetes mellitus and hypertension. CONDITIONS: Continue Plavix 75 mg once a day, Norvasc 5 mg once a day, Crestor 5 mg once a day, Cozaar 100 mg once a day, aspirin 81 mg once a day. Her Azevedo catheter will be removed. I spoke to the SAFETY DEPOSIT CLERK to try to convince patient to have monitoring engineer on at least for few hours. Dannie Collins MD
--- NOTE | 2017-04-09 15:13 | CP.PCM.PN ---
Subjective - Date & Time of Evaluation Date of Evaluation: 04/09/17 Time of Evaluation: 12:35 - Subjective Subjective: Pt seen and examined today states doing well ,denies any chest pain, sob , palpitations, abdominal, n/v f/c draining clear urine hgb stable -9.3>9.2>9.1 s/p PRBC transfusion s/p TURP Objective - Vital Signs/Intake and Output Vital Signs (last 24 hours): Temp Pulse Resp BP Pulse Ox 98.6 F 91 H 18 146/70 95 04/09/17 07:00 04/09/17 07:00 04/09/17 07:00 04/09/17 07:00 04/09/17 07:00 Intake and Output: 04/09/17 04/09/17 06:59 18:59 Intake Total 320 Output Total 1090 Balance -770 - Medications Medications: Current Medications Amlodipine Besylate (Norvasc) 5 mg PO DAILY [facility] Last Admin: 04/09/17 10:21 Dose: 5 mg Aspirin (Aspirin Chewable) 81 mg PO DAILY [facility] Last Admin: 04/09/17 10:21 Dose: 81 mg Clopidogrel Bisulfate (Plavix) 75 mg PO DAILY [facility] Last Admin: 04/09/17 10:20 Dose: 75 mg Docusate Sodium (Colace) 100 mg PO TID [facility] Last Admin: 04/09/17 13:07 Dose: 100 mg Ferrous Sulfate (Feosol) 325 mg PO DAILY [facility] Last Admin: 04/09/17 10:21 Dose: 325 mg Losartan Potassium (Cozaar) 100 mg PO DAILY [facility] Last Admin: 04/09/17 10:21 Dose: 100 mg Metformin HCl (Glucophage) 500 mg PO DAILY [facility] Last Admin: 04/09/17 10:20 Dose: 500 mg Rosuvastatin Calcium (Crestor) 5 mg PO HS [facility] Last Admin: 04/08/17 21:15 Dose: 5 mg Sennosides (Senokot Tab) 8.6 mg PO DAILY [facility] Last Admin: 04/09/17 10:21 Dose: 8.6 mg Tamsulosin HCl (Flomax) 0.4 mg PO BID [facility] Last Admin: 04/09/17 10:20 Dose: 0.4 mg - Labs Labs: 04/09/17 07:45 04/07/17 06:24 PT 13.0 SECONDS (9.7-12.2) H 04/05/17 23:04 INR 1.2 04/05/17 23:04 - Constitutional Appears: Well, No Acute Distress - Respiratory Exam Respiratory Exam: Clear to Ausculation Bilateral, NORMAL BREATHING PATTERN - Cardiovascular Exam Cardiovascular Exam: REGULAR RHYTHM, +S1, +S2 - Neurological Exam Neurological Exam: Alert, Awake, Oriented x3 Assessment and Plan - Assessment and Plan (Free Text) Assessment: A/P 81 yr old male admitted for urinary retension / hematuria / anemia s/p cystoscopy s/p TURP S/P PRBC Transfusion hgb stable after TURP Seen by Dr. boothe , recommends to d/c sm[facility]th cath and pt voiding without any issues discharge home today with 7 days of levaquin and f/u with Dr. Boothe office in 2 week D/w FDr. villalta, stable fo r discharge home today and f/u wiht Dr. Villalta office in 1 week Discharge plan discussed with patient , who understands an d agrees with plan Pt instructed to returns to if voiding difficulty or hematuria recur
[2017-04-09 15:53] VITALS: BP 146/75; PULSE 87; RESP 20; TEMP 98.3; O2SAT 98
--- NOTE | 2017-04-09 23:17 | CP.PCM.DIS ---
Provider - Provider Date of Admission: 04/01/17 15:01 Attending physician: Jonatan Villalta MD Time Spent in preparation of Discharge (in minutes): 30 Diagnosis - Discharge Diagnosis (1) Hematuria Status: Resolved (2) Atherosclerosis of coronary artery Status: Chronic (3) Diabetes 1.5, managed as type 2 Status: Chronic (4) Hypertension Status: Chronic Hospital Course - Lab Results Lab Results: Most Recent Lab Values WBC 7.1 K/uL (4.8-10.8) 04/09/17 07:45 RBC 3.55 Mil/uL (4.40-5.90) L 04/09/17 07:45 Hgb 9.3 g/dL (12.0-18.0) L 04/09/17 07:45 Hct 27.6 % (35.0-51.0) L 04/09/17 07:45 MCV 77.8 fL (80.0-94.0) L 04/09/17 07:45 MCH 26.0 pg (27.0-31.0) L 04/09/17 07:45 MCHC 33.5 g/dL (33.0-37.0) 04/09/17 07:45 RDW 18.6 % (11.5-14.5) H 04/09/17 07:45 Plt Count 196 K/uL (130-400) 04/09/17 07:45 MPV 7.5 fL (7.2-11.7) 04/09/17 07:45 Neut % (Auto) 64.4 % (50.0-75.0) 04/09/17 07:45 Lymph % (Auto) 23.6 % (20.0-40.0) 04/09/17 07:45 Clay % (Auto) 11.3 % (0.0-10.0) H 04/09/17 07:45 Eos % (Auto) 0.5 % (0.0-4.0) 04/09/17 07:45 Baso % (Auto) 0.2 % (0.0-2.0) 04/09/17 07:45 Neut # 4.5 K/uL (1.8-7.0) 04/09/17 07:45 Lymph # 1.7 K/uL (1.0-4.3) 04/09/17 07:45 Clay # 0.8 K/uL (0.0-0.8) 04/09/17 07:45 Eos # 0.0 K/uL (0.0-0.7) 04/09/17 07:45 Baso # 0.0 K/uL (0.0-0.2) 04/09/17 07:45 PT 13.0 SECONDS (9.7-12.2) H 04/05/17 23:04 INR 1.2 04/05/17 23:04 Sodium 137 mmol/L (132-148) 04/07/17 06:24 Potassium 4.9 mmol/L (3.6-5.2) 04/07/17 06:24 Chloride 100 mmol/L (98-107) 04/07/17 06:24 Carbon Dioxide 23 mmol/L (22-30) 04/07/17 06:24 Anion Gap 18 (10-20) 04/07/17 06:24 BUN 24 mg/dL (9-20) H 04/07/17 06:24 Creatinine 1.7 MG/DL (0.8-1.5) H 04/07/17 06:24 Est GFR ( Amer) 47 04/07/17 06:24 Est GFR (Non-Af Amer) 39 04/07/17 06:24 POC Glucose (mg/dL) 154 mg/dL (65-110) H 04/09/17 11:23 Random Glucose 111 mg/dL (75-110) H 04/07/17 06:24 Calcium 8.3 mg/dl (8.6-10.4) L 04/07/17 06:24 Urine Color Red (YELLOW) 03/31/17 11:43 Urine Clarity Hazy (Clear) 03/31/17 11:43 Urine pH 7.0 (5.0-8.0) 03/31/17 11:43 Ur Specific [place] 1.014 (1.003-1.030) 03/31/17 11:43 Urine Protein 2+ mg/dL (NEGATIVE) H 03/31/17 11:43 Urine Glucose (UA) 1+ mg/dL (Normal) H 03/31/17 11:43 Urine Ketones Negative mg/dL (NEGATIVE) 03/31/17 11:43 Urine Blood 3+ (NEGATIVE) H 03/31/17 11:43 Urine Nitrate Negative (NEGATIVE) 03/31/17 11:43 Urine Bilirubin Negative (NEGATIVE) 03/31/17 11:43 Urine Urobilinogen Normal mg/dL (0.2-1.0) 03/31/17 11:43 Ur Leukocyte Esterase Neg [place]/uL (Negative) 03/31/17 11:43 Urine WBC (Auto) 0 /hpf (0-5) 03/31/17 11:43 Urine RBC (Auto) 5614 /hpf (0-3) H 03/31/17 11:43 Urine WBC Clumps (Auto) Many /hpf (NONE) H 03/31/17 11:43 Blood Type A POSITIVE 04/05/17 11:26 Blood Type Confirm A POSITIVE 03/31/17 21:00 Antibody Screen Negative 04/05/17 11:26 - Hospital Course Hospital Course: ADMITTED WITH HEMATURIA AND HE WAS TREATED WITH MEDS AND W/U WAS DONE AND HE UNDERWENT TURP AND IS DISCHARGED Discharge Exam - Head Exam Head Exam: ATRAUMATIC, NORMAL INSPECTION, NORMOCEPHALIC - Eye Exam Eye Exam: EOMI, Normal appearance, PERRL Pupil Exam: NORMAL ACCOMODATION - ENT Exam ENT Exam: Mucous Membranes Moist, Normal Exam - Neck Exam Neck exam: Normal Inspection - Respiratory Exam Respiratory Exam: Clear to PA & Lateral, NORMAL BREATHING PATTERN - Cardiovascular Exam Cardiovascular Exam: REGULAR RHYTHM, +S1, +S2, Systolic Murmur - GI/Abdominal Exam GI & Abdominal Exam: Normal Bowel Sounds - Exam Exam: NORMAL INSPECTION Bimanual exam: NORMAL BIMANUAL EXAM - Back Exam Back exam: FULL ROM - Neurological Exam Neurological exam: Abnormal Gait, Alert, CN II-XII Intact, Motor Sensory Deficit , Oriented x3 - Psychiatric Exam Psychiatric exam: Normal Mood Discharge Plan - Discharge Medications Prescriptions: Docusate [Colace] 100 mg PO BID #60 cap Tamsulosin [Flomax] 0.4 mg PO BID #60 cap levoFLOXacin [Levaquin] 750 mg PO DAILY #7 tab amLODIPine [Norvasc] 5 mg PO DAILY #30 tab Sennosides A and B [Senokot Tab] 8.6 mg PO DAILY #30 tab - Follow Up Plan Condition: STABLE Disposition: HOME/ ROUTINE Instructions: Laxative, Stool Softeners (By mouth), Amlodipine (By mouth), Levofloxacin (By mouth), Tamsulosin (By mouth), Urinary Retention in Men (GEN), Cystoscopy (DC), Transurethral Prostatectomy (DC), Heart Healthy Diet (DC), Acute Hematuria (DC), Anemia (DC) Additional Instructions: PLEASE F/U WITH DR. BOOTHE OFFICE IN 2 WEEK- CALL FOR APPOINTMENT PLEASE F/U WITH OFFICE IN 1 WEEK PLEASE STOP TAKING METOPROLOL CONTINUE MEDICATION PER MED.REC. IF DIFFICULTY VOIDING OR BLOOD IN URINE PLEASE CALL DR. BOOTHE OR RETURNS TO ED PLEASE DIRECTOR OF SOCIAL [employer]IA MARKETING MEDICATION FROM PHARMACY - E PRESCRIBED Referrals: Jonatan Villalta MD [Staff Provider] - Deisy Boothe MD [Staff Provider] -
--- NOTE | 2017-04-11 19:32 | CARD ---
APPROVED REPORT EKG Measurement Heart [id number] CT [id number] <Conclusion> Sinus rhythm with 2nd degree AV block type 1. Nonspecific T wave abnormality Abnormal ECG
--- NOTE | 2017-04-12 01:11 | CARD ---
APPROVED REPORT EKG Measurement Heart [id number] WI P42 [id number] <Conclusion> Sinus tachycardia with 2nd degree AV block (Mobitz I) T wave abnormality, consider lateral ischemia Abnormal ECG
--- NOTE | 2017-04-26 10:27 | OP ---
PROCEDURE DATE: 04/06/2017 PREOPERATIVE DIAGNOSES: Prostatic enlargement, benign prostatic hypertrophy. POSTOPERATIVE DIAGNOSES: Prostatic enlargement, benign prostatic hypertrophy. PROCEDURE: Transurethral resection of the prostate. SURGEON: Dr. Deisy Boothe. DESCRIPTION OF PROCEDURE: The patient received perioperative antibiotics. The patient was placed in lithotomy position. The genitalia were prepped and draped in a sterile fashion. General anesthesia was administered by the anesthesiologist. A 26-Spanish continuous flow resectoscope sheath was introduced under direct vision. Procedure was performed under video endoscopic control. The urethra, prostate and bladder were inspected with 30-degree lens. The resectoscope was inserted. The obstructing prostatic tissue was resected. The landmarks were reviewed and ureteral orifices were maintained to be resection. The resection was begun at the bladder neck on the floor. Thereafter the anterior tissue was resected. Subsequently, the lateral lobes and floor tissues were resected. The prostatic specimen was removed using the OPENLANE evacuator. The resectoscope was reinserted. There were no residual prostatic chips. The ureteral orifices were intact. Hemostasis was complete. Resectoscope and sheath were removed. A Azevedo catheter was inserted. Bladder drainage was clear. There was minimal bleeding throughout the procedure. The patient tolerated the procedure without complication. The patient was returned to the supine position. The patient was transferred to the recovery room in satisfactory condition. ESTIMATED BLOOD LOSS: 20 mL. COMPLICATIONS WITH SURGERY: None. Deisy Boothe MD
--- NOTE | 2017-04-27 08:53 | OP ---
PROCEDURE DATE: 04/02/2017 UROLOGY OPERATIVE REPORT PREOPERATIVE DIAGNOSES: 1. Hematuria. 2. Urinary retention. 3. Prostatic enlargement. POSTOPERATIVE DIAGNOSES: 1. Hematuria. 2. Urinary retention. 3. Prostatic enlargement. PROCEDURES: 1. Cystoscopy. 2. Evacuation of bladder clots. 4. Bladder biopsy and fulguration. 5. Transurethral resection of bladder neck. SURGEON: Dr. Deisy Boothe. DESCRIPTION OF PROCEDURE: The patient was placed in lithotomy position. Genitalia were prepped and draped sterilely. Anesthesia was provided by the anesthesiologist. A 22-[place] cystoscope sheath was introduced under direct vision. Urethra, prostate and bladder were inspected. UROLOGIC FINDINGS: There was large massive clots within the bladder. The clots obscured full visibility in the bladder. There was no evidence of stricture of the urethra. There was evidence of prostatic enlargement, which was occlusive. There was moderate contact bleeding from the surface of the prostate. The bladder clots were evacuated using Darian syringe and the evacuator. The bladder was able to then be reinspected. There was no bladder tumor identified. There was no bladder stone. There was abnormal mucosa of the bladder. The cystoscope and sheath were removed. A 26-[place] continuous flow resectoscope sheath was introduced under direct vision. The resectoscope was inserted to allow efficient evacuation of the bladder clots. The area of the abnormal bladder mucosa was biopsied using cold-cup biopsy forceps. Fulguration was performed with ball electrode and electrocautery. There was bleeding from the bladder neck as well. This area required resection to control the bleeding as the bleeding was not stopped via fulguration. The hemostasis was completed. The resectoscope was easily removed. A Azevedo catheter was inserted. Bladder drainage was clear. Rectal examination was performed. Prostate was supple and smooth approximately 35 grams in size, without fixation, induration or nodularity. The patient was returned to the supine position. The patient tolerated the procedure without complication. Estimated blood loss 30 mL. Deisy Boothe MD cc: Deisy Boothe MD
== END 2017-04-09 18:58 | disposition home or self-care (01) | DRG 667 ==
LOC: C.ER 10:42 → C.9E 12:28 → C.6T 15:07 → OBSVTOIN 04-01 15:01
PROVIDERS: ADMIT Internal Medicine; ATTEND Internal Medicine
PROC: 30233N1 Transfusion of Nonautologous Red Blood Cells into Peripheral Vein, Percutaneous Approach (ICD-10-PCS; 2017-04-05)
PROC: 0VT08ZZ Resection of Prostate, Via Natural or Artificial Opening Endoscopic (ICD-10-PCS; principal; 2017-04-06 12:15)
DX: N30.91 Cystitis, unspecified with hematuria (principal); E11.22 Type 2 diabetes mellitus with diabetic chronic kidney disease; E11.65 Type 2 diabetes mellitus with hyperglycemia; I27.2 Other secondary pulmonary hypertension; I44.1 Atrioventricular block, second degree; N40.1 Benign prostatic hyperplasia with lower urinary tract symptoms; D64.9 Anemia, unspecified; R33.8 Other retention of urine; I12.9 Hypertensive chronic kidney disease with stage 1 through stage 4 chronic kidney disease, or unspecified chronic kidney disease; N18.9 Chronic kidney disease, unspecified; I25.10 Atherosclerotic heart disease of native coronary artery without angina pectoris; F17.210 Nicotine dependence, cigarettes, uncomplicated; I73.9 Peripheral vascular disease, unspecified; Z85.46 Personal history of malignant neoplasm of prostate; Z89.512 Acquired absence of left leg below knee; Z95.1 Presence of aortocoronary bypass graft; Z79.4 Long term (current) use of insulin